=== PATIENT | female | born 1960 | race Caucasian/White ===

== ENCOUNTER 2017-08-12 13:02 | Inpatient (IN) | payer OTHER ==
[~2017-08-12] VITALS: Ht 162.6 cm; Wt 86.2 kg
[2017-08-12] MEDS ORDERED: fentaNYL PF VIAL 100 MCG/2 ML VIAL IV PRN (15:45)
[2017-08-12] MEDS ORDERED: oxyCODONE IR 5 MG TABLET PO PRN (15:45)
[2017-08-12] MEDS ORDERED: PIP/TAZO PER PHARMACY MC PRN (15:45)
--- NOTE | 2017-08-12 15:46 | PDOC1 ---
History and Physical Date of Admission Date of Admission DATE: 08/12/17 TIME: 15:44 Identification/Chief Complaint Chief Complaint abdomen pain Problems: Source Source: Caregiver, Chart review, Patient History of Present Illness History of Present Illness pt presented to the ER at [facility] with a few days of abdominal pain, mid abdomen pain, she thought it felt like a kidney problem at first. She was taking ibuprofen with some good benefit to her pain. Came to the ER as pain was not improving much. Mid abd pain, 02/04 CT scan abdomen showed renal stones, possible flash Abx given at OSH, white count up and she reported fever and chills at home since traveling to this hospital, her pain is much improved, less abd pain she drinks almost no alcohol, has no sick contacts, works nights, but is usually very healthy has had no change in stools Past Medical History Cardiovascular: No pertinent hx Pulmonary: No pertinent hx GI: No pertinent hx Heme/Onc: No pertinent hx Psych: No pertinent hx Rheumatologic: No pertinent hx Infectious disease: No pertinent hx ENT: No pertinent hx Renal/: No pertinent hx Endocrine: No pertinent hx Dermatology: No pertinent hx Past Surgical History Past Surgical History: No pertinent history Family History Family History: No Significant Social History Smoke: No ALCOHOL: rare Drugs: None Allergies Allergies: Coded Allergies: No Known Drug Allergies (Unverified , 08/12/17) ROS General: YES: Night Sweats, Fatigue, No: Chills, Malaise, Appetite, Other PSYCHOLOGICAL ROS: No: Concentration difficultie, Decreased libido, Depression , Disorientation, Hallucinations, Hostility, Irritablity, Memory difficulties, Mood Swings, Obsessive thoughts, Physical abuse, Sexual abuse, Sleep disturbances, Suicidal ideation, Other Eyes: No Blurry vision, No Decreased vision, No Double vision, No Dry eyes, No Excessive tearing, No Eye Pain, No Itchy Eyes, No Loss of vision, No Photophobia , No Scotomata, No Uses contacts, No Uses glasses, No Other HEENT: YES: Heacaches, No: Visual Changes, Hearing change, Nasal congestion, Nasal discharge, Oral lesions, Sinus pain, Sore Throat, Epistaxis, Sneezing, Snoring, Tinnitus, Vertigo, Vocal changes, Other Respiratory: No: Cough, Hemoptysis, Orthopnea, Pleuritic Pain, Shortness of breath, SOB with excertion, Sputum Changes, Stridor, Tachypnea, Wheezing, Other Cardiovascular: No Chest Pain, No Palpitations, No Orthopnea, No Paroxysmal Noc. Dyspnea, No Edema, No Lt Headedness, No Other Gastrointestinal: Yes Nausea, Yes Abdominal Pain, No Vomiting, No Diarrhea, No Constipation, No Melena, No Hematochezia, No Other Genitourinary: No Dysuria, No Frequency, No Incontinence, No Hematuria, No Retention, No Discharge, No Urgency, No Pain, No Flank Pain, No Other, No , No , No , No , No , No , No Musculoskeletal: No Gait Disturbance, No Joint Pain, No Joint Stiffness, No Joint Swelling, No Muscle Pain, No Muscular Weakness, No Pain In:, No Swelling In:, No Other Neurological: No Behavorial Changes, No Bowel/Bladder ControlChng, No Confusion , No Dizziness, No Gait Disturbance, No Headaches, No Impaired Coord/balance, No Memory Loss, No Numbness/Tingling, No Seizures, No Speech Problems, No Tremors, No Visual Changes, No Weakness, No Other Skin: No Dry Skin, No Eczema, No Hair Changes, No Lumps, No Mole Changes, No Mottling, No Nail Changes, No Pruritus, No Rash, No Skin Lesion Changes, No Other, No Acne Physical Exam General: Alert, Oriented X3, Cooperative, No acute distress HEENT: Atraumatic, PERRLA, Mucous membr. moist/pink Lungs: Clear to auscultation, Normal air movement Heart: S1S2, no gallops, no murmurs Abdomen: Normal bowel sounds, Soft Extremities: No clubbing, No cyanosis, No edema Skin: No rashes, No breakdown Neuro: Normal speech, Normal tone, Sensation intact, Cranial nerves 3-12 NL Psych/Mental Status: Mental status NL, Mood NL Labs Labs WBC 12.5, Hgb 15.3, plt 333 Na 143, K 3.8, Cl 106, C02 26, BUN 9, Cr 0.9, glucose 112 Lipase > 45065, AST 567, ALT [address] abd 08/12 Impression: 1. Mildly dilated gallbladder with cholelithiasis. Findings are equivocal for acute cholecystitis. 2. No nephrolithiasis or hydronephrosis. VTE Prophylaxis Ordered VTE Prophylaxis Devices: No VTE Pharmacological Prophylaxi: Yes Assessment/Plan Assessment/Plan acute pancreatitis possible gallstone pancreatitis, consult GI, may need MRCP has been NPO, try clears and IV fluid white count and fever, sepsis, unk. source, consider cholangitis as that is the only problem area, zosyn started, will continue consult gen surg. may benefit from cholecystectomy at some point admit PUJA PANTOJA MD Aug 12, 2017 15:46
[2017-08-12] MEDS ORDERED: SALIVA STIMULANT AGENT 44ML SPRAY BOTTLE. PO PRN (17:45)
[2017-08-12] MEDS ORDERED: ONDANSETRON PF 4 MG/2 ML VIAL. IV PRN (17:45)
[2017-08-12] MEDS: PIPERACILLIN/TAZO IV Push 3.375 GM VIAL. IVP SCH ×2 (18:07→23:44)
[2017-08-12] MEDS: IV NORMAL SALINE 1000ML BAG 1,000 ML IV SCH (18:07)
[2017-08-12 19:00] VITALS: BP 116/54
[2017-08-12] MEDS: ENOXAPARIN 40 MG/0.4 ML SYRINGE. SQ SCH (20:28)
[2017-08-12] MEDS: ACETAMINOPHEN 325 MG TABLET. PO PRN (20:28)
[2017-08-12 23:00] VITALS: BP 113/54
[2017-08-13 03:04] VITALS: BP 107/43
[2017-08-13] MEDS: IV NORMAL SALINE 1000ML BAG 1,000 ML IV SCH ×3 (03:35→23:56)
[2017-08-13 05:16] LABS: BASO # 0.1 x10^3/uL (0.0-0.2); BASO % 1 % (0-3); EOS % 6 % (0-3); HEMATOCRIT 39.4 % (36.0-47.0); HEMOGLOBIN 13.3 g/dL (12.0-15.5); LYMPH # 2.5 x10^3/uL (1.0-4.8); LYMPH % 35 % (24-48); MEAN CORPUSCULAR HEMOGLOBIN 32 pg (25-35); MEAN CORPUSCULAR HGB CONC 34 g/dL (31-37); MEAN CORPUSCULAR VOLUME 94 fL (79-100); MONO % 8 % (0-9); NEUT % 50 % (31-73); PLATELET COUNT 284 x10^3/uL (140-400); RED CELL DISTRIBUTION WIDTH 13.6 % (11.5-14.5)
[2017-08-13 05:53] LABS: ALBUMIN 3.2 g/dL (3.4-5.0); ALBUMIN/GLOBULIN RATIO 1.1 (1.0-1.7); CALCIUM 8.5 mg/dL (8.5-10.1); CREATININE 0.8 mg/dL (0.6-1.0); GFR 74.2; TOTAL BILIRUBIN 2.9 mg/dL (0.2-1.0)
[2017-08-13 05:55] LABS: CHOLESTEROL/HDL RATIO 1.7
[2017-08-13] MEDS: PIPERACILLIN/TAZO IV Push 3.375 GM VIAL. IVP SCH ×4 (05:58→23:56)
[2017-08-13 07:00] VITALS: BP 145/97
[2017-08-13] MEDS: ACETAMINOPHEN 325 MG TABLET. PO PRN (07:48)
--- NOTE | 2017-08-13 10:35 | PDOC ---
PROGRESS NOTES Chief Complaint Chief Complaint acute pancreatitis possible gallstone pancreatitis, consult GI, may need MRCP nausea and vomiting and diarrhea, enteritis, white count and fever, sepsis, treating cholangitis transaminitis History of Present Illness History of Present Illness lipase down markedly 15 k to 4k liver enzymes improving, Gen surg to see this AM, discussed briefly in room, cont abx, clear liquids Adat Vitals Vitals Vital Signs Date Time Temp Pulse Resp B/P (MAP) Pulse Ox O2 Delivery O2 Flow Rate FiO2 08/13/17 08:00 Room Air 08/13/17 07:00 98.2 56 20 145/97 (113) 96 98.2 Physical Exam General: Alert, Oriented X3, Cooperative, No acute distress Heart: Regular rate Abdomen: Normal bowel sounds, Soft Extremities: No clubbing, No cyanosis, No edema Skin: No rashes, No breakdown Labs LABS Laboratory Tests Test 08/13/17 04:55 White Blood Count 7.0 x10^3/uL (4.0-11.0) Red Blood Count 4.20 x10^6/uL (3.50-5.40) Hemoglobin 13.3 g/dL (12.0-15.5) Hematocrit 39.4 % (36.0-47.0) Mean Corpuscular Volume 94 fL (79-100) Mean Corpuscular Hemoglobin 32 pg (25-35) Mean Corpuscular Hemoglobin Concent 34 g/dL (31-37) Red Cell Distribution Width 13.6 % (11.5-14.5) Platelet Count 284 x10^3/uL (140-400) Neutrophils (%) (Auto) 50 % (31-73) Lymphocytes (%) (Auto) 35 % (24-48) Monocytes (%) (Auto) 8 % (0-9) Eosinophils (%) (Auto) 6 % (0-3) Basophils (%) (Auto) 1 % (0-3) Neutrophils # (Auto) 3.5 x10^3uL (1.8-7.7) Lymphocytes # (Auto) 2.5 x10^3/uL (1.0-4.8) Monocytes # (Auto) 0.6 x10^3/uL (0.0-1.1) Eosinophils # (Auto) 0.4 x10^3/uL (0.0-0.7) Basophils # (Auto) 0.1 x10^3/uL (0.0-0.2) Sodium Level 143 mmol/L (136-145) Potassium Level 4.0 mmol/L (3.5-5.1) Chloride Level 109 mmol/L (98-107) Carbon Dioxide Level 24 mmol/L (21-32) Anion Gap 10 (6-14) Blood Urea Nitrogen 12 mg/dL (7-20) Creatinine 0.8 mg/dL (0.6-1.0) Estimated GFR (Cockcroft-Gault) 74.2 BUN/Creatinine Ratio 15 (6-20) Glucose Level 99 mg/dL (70-99) Calcium Level 8.5 mg/dL (8.5-10.1) Total Bilirubin 2.9 mg/dL (0.2-1.0) Gamma Glutamyl Transpeptidase 718 U/L (5-55) Aspartate Amino Transf (AST/SGOT) 320 U/L (15-37) Alanine Aminotransferase (ALT/SGPT) 581 U/L (14-59) Alkaline Phosphatase 265 U/L (46-116) Total Protein 6.0 g/dL (6.4-8.2) Albumin 3.2 g/dL (3.4-5.0) Albumin/Globulin Ratio 1.1 (1.0-1.7) Triglycerides Level 36 mg/dL (0-150) Cholesterol Level 180 mg/dL (0-200) LDL Cholesterol, Calculated 68 mg/dL (0-100) VLDL Cholesterol, Calculated 7 mg/dL (0-40) Non-HDL Cholesterol Calculated 75 mg/dL (0-129) HDL Cholesterol 105 mg/dL (40-60) Cholesterol/HDL Ratio 1.7 Lipase 3948 U/L (73-393) Review of Systems Review of Systems nausea and vomiting and diarrhea abd pain better Comment Review of Relevant I have reviewed the following items los (where applicable) has been applied. Labs Laboratory Tests Test 08/13/17 04:55 White Blood Count 7.0 x10^3/uL (4.0-11.0) Red Blood Count 4.20 x10^6/uL (3.50-5.40) Hemoglobin 13.3 g/dL (12.0-15.5) Hematocrit 39.4 % (36.0-47.0) Mean Corpuscular Volume 94 fL (79-100) Mean Corpuscular Hemoglobin 32 pg (25-35) Mean Corpuscular Hemoglobin Concent 34 g/dL (31-37) Red Cell Distribution Width 13.6 % (11.5-14.5) Platelet Count 284 x10^3/uL (140-400) Neutrophils (%) (Auto) 50 % (31-73) Lymphocytes (%) (Auto) 35 % (24-48) Monocytes (%) (Auto) 8 % (0-9) Eosinophils (%) (Auto) 6 % (0-3) Basophils (%) (Auto) 1 % (0-3) Neutrophils # (Auto) 3.5 x10^3uL (1.8-7.7) Lymphocytes # (Auto) 2.5 x10^3/uL (1.0-4.8) Monocytes # (Auto) 0.6 x10^3/uL (0.0-1.1) Eosinophils # (Auto) 0.4 x10^3/uL (0.0-0.7) Basophils # (Auto) 0.1 x10^3/uL (0.0-0.2) Sodium Level 143 mmol/L (136-145) Potassium Level 4.0 mmol/L (3.5-5.1) Chloride Level 109 mmol/L (98-107) Carbon Dioxide Level 24 mmol/L (21-32) Anion Gap 10 (6-14) Blood Urea Nitrogen 12 mg/dL (7-20) Creatinine 0.8 mg/dL (0.6-1.0) Estimated GFR (Cockcroft-Gault) 74.2 BUN/Creatinine Ratio 15 (6-20) Glucose Level 99 mg/dL (70-99) Calcium Level 8.5 mg/dL (8.5-10.1) Total Bilirubin 2.9 mg/dL (0.2-1.0) Gamma Glutamyl Transpeptidase 718 U/L (5-55) Aspartate Amino Transf (AST/SGOT) 320 U/L (15-37) Alanine Aminotransferase (ALT/SGPT) 581 U/L (14-59) Alkaline Phosphatase 265 U/L (46-116) Total Protein 6.0 g/dL (6.4-8.2) Albumin 3.2 g/dL (3.4-5.0) Albumin/Globulin Ratio 1.1 (1.0-1.7) Triglycerides Level 36 mg/dL (0-150) Cholesterol Level 180 mg/dL (0-200) LDL Cholesterol, Calculated 68 mg/dL (0-100) VLDL Cholesterol, Calculated 7 mg/dL (0-40) Non-HDL Cholesterol Calculated 75 mg/dL (0-129) HDL Cholesterol 105 mg/dL (40-60) Cholesterol/HDL Ratio 1.7 Lipase 3948 U/L (73-393) Laboratory Tests Test 08/13/17 04:55 White Blood Count 7.0 x10^3/uL (4.0-11.0) Red Blood Count 4.20 x10^6/uL (3.50-5.40) Hemoglobin 13.3 g/dL (12.0-15.5) Hematocrit 39.4 % (36.0-47.0) Mean Corpuscular Volume 94 fL (79-100) Mean Corpuscular Hemoglobin 32 pg (25-35) Mean Corpuscular Hemoglobin Concent 34 g/dL (31-37) Red Cell Distribution Width 13.6 % (11.5-14.5) Platelet Count 284 x10^3/uL (140-400) Neutrophils (%) (Auto) 50 % (31-73) Lymphocytes (%) (Auto) 35 % (24-48) Monocytes (%) (Auto) 8 % (0-9) Eosinophils (%) (Auto) 6 % (0-3) Basophils (%) (Auto) 1 % (0-3) Neutrophils # (Auto) 3.5 x10^3uL (1.8-7.7) Lymphocytes # (Auto) 2.5 x10^3/uL (1.0-4.8) Monocytes # (Auto) 0.6 x10^3/uL (0.0-1.1) Eosinophils # (Auto) 0.4 x10^3/uL (0.0-0.7) Basophils # (Auto) 0.1 x10^3/uL (0.0-0.2) Sodium Level 143 mmol/L (136-145) Potassium Level 4.0 mmol/L (3.5-5.1) Chloride Level 109 mmol/L (98-107) Carbon Dioxide Level 24 mmol/L (21-32) Anion Gap 10 (6-14) Blood Urea Nitrogen 12 mg/dL (7-20) Creatinine 0.8 mg/dL (0.6-1.0) Estimated GFR (Cockcroft-Gault) 74.2 BUN/Creatinine Ratio 15 (6-20) Glucose Level 99 mg/dL (70-99) Calcium Level 8.5 mg/dL (8.5-10.1) Total Bilirubin 2.9 mg/dL (0.2-1.0) Gamma Glutamyl Transpeptidase 718 U/L (5-55) Aspartate Amino Transf (AST/SGOT) 320 U/L (15-37) Alanine Aminotransferase (ALT/SGPT) 581 U/L (14-59) Alkaline Phosphatase 265 U/L (46-116) Total Protein 6.0 g/dL (6.4-8.2) Albumin 3.2 g/dL (3.4-5.0) Albumin/Globulin Ratio 1.1 (1.0-1.7) Triglycerides Level 36 mg/dL (0-150) Cholesterol Level 180 mg/dL (0-200) LDL Cholesterol, Calculated 68 mg/dL (0-100) VLDL Cholesterol, Calculated 7 mg/dL (0-40) Non-HDL Cholesterol Calculated 75 mg/dL (0-129) HDL Cholesterol 105 mg/dL (40-60) Cholesterol/HDL Ratio 1.7 Lipase 3948 U/L (73-393) Medications Current Medications Enoxaparin Sodium (Lovenox Per Pharmacy Prophylaxis Dosing) 1 each PRN DAILY PRN MC SEE COMMENTS; Start 08/12/17 at 15:45 Oxycodone HCl (Roxicodone) 5 mg PRN Q6HRS PRN PO PAIN SEVERE; Start 08/12/17 at 15:45 Fentanyl Citrate (Fentanyl 2ml Vial) 50 mcg PRN Q2HR PRN IV PAIN SEVERE; Start 08/12/17 at 15:45 Piperacillin Sod/ Tazobactam Sod (Zosyn Per Pharmacy) 1 each PRN DAILY PRN MC SEE COMMENTS; Start 08/12/17 at 15:45 Enoxaparin Sodium (Lovenox 40mg Syringe) 40 mg Q24H SQ ; Start 08/12/17 at 21: 00 Piperacillin Sod/ Tazobactam Sod (Zosyn) 3.375 gm Q6HRS IVP Last administered on 08/13/17 05:58; Start 08/12/17 at 18:00 Sodium Chloride 1,000 ml @ 100 mls/hr Q10H IV Last administered on 08/13/17 03:35; Start 08/12/17 at 17:15 Saliva Substitute (Biotene Moisturizing Mouth) 2 spray PRN Q15MIN PRN PO DRY MOUTH; Start 08/12/17 at 17:45 Ondansetron HCl (Zofran) 4 mg PRN Q8HRS PRN IV NAUSEA/VOMITING 1ST CHOICE; Start 08/12/17 at 17:45 Acetaminophen (Tylenol) 650 mg PRN Q6HRS PRN PO HEADACHE Last administered on 08/13/17 07:48; Start 08/12/17 at 19:45 Vitals/I & O Vital Sign - Last 24 Hours 08/12/17 08/12/17 08/12/17 08/12/17 15:42 19:00 19:42 23:00 Temp 98.2 99.7 98.2 99.7 Pulse 70 68 Resp 18 18 B/P (MAP) 116/54 (74) 113/54 (73) Pulse Ox 94 95 O2 Delivery Room Air Room Air Room Air Room Air 08/13/17 08/13/17 08/13/17 03:04 07:00 08:00 Temp 98.1 98.2 98.1 98.2 Pulse 61 56 Resp 20 20 B/P (MAP) 107/43 (64) 145/97 (113) Pulse Ox 96 96 O2 Delivery Room Air Room Air Room Air Intake and Output 08/12/17 08/12/17 08/13/17 15:00 23:00 07:00 Intake Total 120 ml 240 ml Balance 120 ml 240 ml PUJA PANTOJA MD Aug 13, 2017 10:35
[2017-08-13 10:42] VITALS: BP 138/57
--- NOTE | 2017-08-13 13:47 | PDOC ---
GI PROGRESS NOTES Date Date/Time DATE: 08/13/17 TIME: 13:41 Subjective Subjective Sudden onset periumbilical pain and n/v- history of dyspepsia and HB in past but no pain like this- abn lfts and liapse at [facility] and Ct with gallstones but no CBD dilation- transferred here Objective Vitals Vital Signs Date Time Temp Pulse Resp B/P (MAP) Pulse Ox O2 Delivery O2 Flow Rate FiO2 08/13/17 10:42 98.1 55 20 138/57 (84) 95 Room Air 98.1 08/13/17 08:00 Room Air 08/13/17 07:00 98.2 56 20 145/97 (113) 96 Room Air 98.2 08/13/17 03:04 98.1 61 20 107/43 (64) 96 Room Air 98.1 08/12/17 23:00 99.7 68 18 113/54 (73) 95 Room Air 99.7 08/12/17 19:42 Room Air 08/12/17 19:00 98.2 70 18 116/54 (74) 94 Room Air 98.2 08/12/17 15:42 Room Air Labs Labs Laboratory Tests Test 08/13/17 04:55 White Blood Count 7.0 x10^3/uL (4.0-11.0) Red Blood Count 4.20 x10^6/uL (3.50-5.40) Hemoglobin 13.3 g/dL (12.0-15.5) Hematocrit 39.4 % (36.0-47.0) Mean Corpuscular Volume 94 fL (79-100) Mean Corpuscular Hemoglobin 32 pg (25-35) Mean Corpuscular Hemoglobin Concent 34 g/dL (31-37) Red Cell Distribution Width 13.6 % (11.5-14.5) Platelet Count 284 x10^3/uL (140-400) Neutrophils (%) (Auto) 50 % (31-73) Lymphocytes (%) (Auto) 35 % (24-48) Monocytes (%) (Auto) 8 % (0-9) Eosinophils (%) (Auto) 6 % (0-3) Basophils (%) (Auto) 1 % (0-3) Neutrophils # (Auto) 3.5 x10^3uL (1.8-7.7) Lymphocytes # (Auto) 2.5 x10^3/uL (1.0-4.8) Monocytes # (Auto) 0.6 x10^3/uL (0.0-1.1) Eosinophils # (Auto) 0.4 x10^3/uL (0.0-0.7) Basophils # (Auto) 0.1 x10^3/uL (0.0-0.2) Sodium Level 143 mmol/L (136-145) Potassium Level 4.0 mmol/L (3.5-5.1) Chloride Level 109 mmol/L (98-107) Carbon Dioxide Level 24 mmol/L (21-32) Anion Gap 10 (6-14) Blood Urea Nitrogen 12 mg/dL (7-20) Creatinine 0.8 mg/dL (0.6-1.0) Estimated GFR (Cockcroft-Gault) 74.2 BUN/Creatinine Ratio 15 (6-20) Glucose Level 99 mg/dL (70-99) Calcium Level 8.5 mg/dL (8.5-10.1) Total Bilirubin 2.9 mg/dL (0.2-1.0) Gamma Glutamyl Transpeptidase 718 U/L (5-55) Aspartate Amino Transf (AST/SGOT) 320 U/L (15-37) Alanine Aminotransferase (ALT/SGPT) 581 U/L (14-59) Alkaline Phosphatase 265 U/L (46-116) Total Protein 6.0 g/dL (6.4-8.2) Albumin 3.2 g/dL (3.4-5.0) Albumin/Globulin Ratio 1.1 (1.0-1.7) Triglycerides Level 36 mg/dL (0-150) Cholesterol Level 180 mg/dL (0-200) LDL Cholesterol, Calculated 68 mg/dL (0-100) VLDL Cholesterol, Calculated 7 mg/dL (0-40) Non-HDL Cholesterol Calculated 75 mg/dL (0-129) HDL Cholesterol 105 mg/dL (40-60) Cholesterol/HDL Ratio 1.7 Lipase 3948 U/L (73-393) Assessment Assessment Acute pain with elevated lipase and lfts yesterday- suggestive of passing CBD stone- clinically improved- pain resolved and labs still abn but improving Was considering MRCP BUT I understand surgery has seen her and planning L/C tomorrow- with IOC- so will hold on MRCP at this time and await results of surgery. Had negative screening colonoscopy a few years ago Empiric PPI as well Consult dictated Problems: BRY GUILLORY MD Aug 13, 2017 13:47
[2017-08-13 14:45] VITALS: BP 120/47
[2017-08-13] MEDS: PANTOPRAZOLE IV PUSH 40 MG VIAL. IVP SCH (15:39)
--- NOTE | 2017-08-13 16:02 | PDOC2 ---
CONSULT Date of Consult Date of Consult DATE: 08/13/17 TIME: 15:58 Reason for Consult Reason for Consult: Gallstone pancreatitis Referring Physician Referring Physician: Sergio Identification/Chief Complaint Chief Complaint Epigastric abd pain Problems: Source Source: Patient History of Present Illness Reason for Visit: 56 yo F with epigastric abd pain, acute onset. Identified to have evidence of gallstone pancreatitis and transferred here. Feels better today. Past Medical History Cardiovascular: No pertinent hx Pulmonary: No pertinent hx GI: No pertinent hx Heme/Onc: No pertinent hx Psych: No pertinent hx Rheumatologic: No pertinent hx Infectious disease: No pertinent hx ENT: No pertinent hx Renal/: No pertinent hx Endocrine: No pertinent hx Dermatology: No pertinent hx Past Surgical History Past Surgical History: No pertinent history Family History Family History: No Significant Social History No ALCOHOL: rare Drugs: None Current Medications Current Medications Current Medications Enoxaparin Sodium (Lovenox Per Pharmacy Prophylaxis Dosing) 1 each PRN DAILY PRN MC SEE COMMENTS; Start 08/12/17 at 15:45 Oxycodone HCl (Roxicodone) 5 mg PRN Q6HRS PRN PO PAIN SEVERE; Start 08/12/17 at 15:45 Fentanyl Citrate (Fentanyl 2ml Vial) 50 mcg PRN Q2HR PRN IV PAIN SEVERE; Start 08/12/17 at 15:45 Piperacillin Sod/ Tazobactam Sod (Zosyn Per Pharmacy) 1 each PRN DAILY PRN MC SEE COMMENTS; Start 08/12/17 at 15:45 Enoxaparin Sodium (Lovenox 40mg Syringe) 40 mg Q24H SQ ; Start 08/12/17 at 21: 00 Piperacillin Sod/ Tazobactam Sod (Zosyn) 3.375 gm Q6HRS IVP Last administered on 08/13/17t 12:31; Start 08/12/17 at 18:00 Sodium Chloride 1,000 ml @ 100 mls/hr Q10H IV Last administered on 08/13/17t 14:30; Start 08/12/17 at 17:15 Saliva Substitute (Biotene Moisturizing Mouth) 2 spray PRN Q15MIN PRN PO DRY MOUTH; Start 08/12/17 at 17:45 Ondansetron HCl (Zofran) 4 mg PRN Q8HRS PRN IV NAUSEA/VOMITING 1ST CHOICE; Start 08/12/17 at 17:45 Acetaminophen (Tylenol) 650 mg PRN Q6HRS PRN PO HEADACHE Last administered on 08/13/17 07:48; Start 08/12/17 at 19:45 Pantoprazole Sodium (PROTONIX VIAL for IV PUSH) 40 mg DAILYAC IVP Last administered on 08/13/17 15:39; Start 08/13/17 at 14:00 Allergies Allergies: Coded Allergies: No Known Drug Allergies (Unverified , 08/12/17) ROS Gastrointestinal: Yes Abdominal Pain Physical Exam General: Alert, Oriented X3, Cooperative, No acute distress HEENT: Atraumatic, EOMI Lungs: Normal air movement Abdomen: Soft, Other (min epigastric TTP) Extremities: No clubbing, No cyanosis Skin: No rashes, No breakdown Neuro: Normal speech, Sensation intact Psych/Mental Status: Mental status NL, Mood NL Vitals VITALS Vital Signs Date Time Temp Pulse Resp B/P (MAP) Pulse Ox O2 Delivery O2 Flow Rate FiO2 08/13/17 14:45 98.2 55 18 120/47 (71) 93 Room Air 98.2 Labs Labs Laboratory Tests Test 08/13/17 04:55 White Blood Count 7.0 x10^3/uL (4.0-11.0) Red Blood Count 4.20 x10^6/uL (3.50-5.40) Hemoglobin 13.3 g/dL (12.0-15.5) Hematocrit 39.4 % (36.0-47.0) Mean Corpuscular Volume 94 fL (79-100) Mean Corpuscular Hemoglobin 32 pg (25-35) Mean Corpuscular Hemoglobin Concent 34 g/dL (31-37) Red Cell Distribution Width 13.6 % (11.5-14.5) Platelet Count 284 x10^3/uL (140-400) Neutrophils (%) (Auto) 50 % (31-73) Lymphocytes (%) (Auto) 35 % (24-48) Monocytes (%) (Auto) 8 % (0-9) Eosinophils (%) (Auto) 6 % (0-3) Basophils (%) (Auto) 1 % (0-3) Neutrophils # (Auto) 3.5 x10^3uL (1.8-7.7) Lymphocytes # (Auto) 2.5 x10^3/uL (1.0-4.8) Monocytes # (Auto) 0.6 x10^3/uL (0.0-1.1) Eosinophils # (Auto) 0.4 x10^3/uL (0.0-0.7) Basophils # (Auto) 0.1 x10^3/uL (0.0-0.2) Sodium Level 143 mmol/L (136-145) Potassium Level 4.0 mmol/L (3.5-5.1) Chloride Level 109 mmol/L (98-107) Carbon Dioxide Level 24 mmol/L (21-32) Anion Gap 10 (6-14) Blood Urea Nitrogen 12 mg/dL (7-20) Creatinine 0.8 mg/dL (0.6-1.0) Estimated GFR (Cockcroft-Gault) 74.2 BUN/Creatinine Ratio 15 (6-20) Glucose Level 99 mg/dL (70-99) Calcium Level 8.5 mg/dL (8.5-10.1) Total Bilirubin 2.9 mg/dL (0.2-1.0) Gamma Glutamyl Transpeptidase 718 U/L (5-55) Aspartate Amino Transf (AST/SGOT) 320 U/L (15-37) Alanine Aminotransferase (ALT/SGPT) 581 U/L (14-59) Alkaline Phosphatase 265 U/L (46-116) Total Protein 6.0 g/dL (6.4-8.2) Albumin 3.2 g/dL (3.4-5.0) Albumin/Globulin Ratio 1.1 (1.0-1.7) Triglycerides Level 36 mg/dL (0-150) Cholesterol Level 180 mg/dL (0-200) LDL Cholesterol, Calculated 68 mg/dL (0-100) VLDL Cholesterol, Calculated 7 mg/dL (0-40) Non-HDL Cholesterol Calculated 75 mg/dL (0-129) HDL Cholesterol 105 mg/dL (40-60) Cholesterol/HDL Ratio 1.7 Lipase 3948 U/L (73-393) Laboratory Tests Test 08/13/17 04:55 White Blood Count 7.0 x10^3/uL (4.0-11.0) Red Blood Count 4.20 x10^6/uL (3.50-5.40) Hemoglobin 13.3 g/dL (12.0-15.5) Hematocrit 39.4 % (36.0-47.0) Mean Corpuscular Volume 94 fL (79-100) Mean Corpuscular Hemoglobin 32 pg (25-35) Mean Corpuscular Hemoglobin Concent 34 g/dL (31-37) Red Cell Distribution Width 13.6 % (11.5-14.5) Platelet Count 284 x10^3/uL (140-400) Neutrophils (%) (Auto) 50 % (31-73) Lymphocytes (%) (Auto) 35 % (24-48) Monocytes (%) (Auto) 8 % (0-9) Eosinophils (%) (Auto) 6 % (0-3) Basophils (%) (Auto) 1 % (0-3) Neutrophils # (Auto) 3.5 x10^3uL (1.8-7.7) Lymphocytes # (Auto) 2.5 x10^3/uL (1.0-4.8) Monocytes # (Auto) 0.6 x10^3/uL (0.0-1.1) Eosinophils # (Auto) 0.4 x10^3/uL (0.0-0.7) Basophils # (Auto) 0.1 x10^3/uL (0.0-0.2) Sodium Level 143 mmol/L (136-145) Potassium Level 4.0 mmol/L (3.5-5.1) Chloride Level 109 mmol/L (98-107) Carbon Dioxide Level 24 mmol/L (21-32) Anion Gap 10 (6-14) Blood Urea Nitrogen 12 mg/dL (7-20) Creatinine 0.8 mg/dL (0.6-1.0) Estimated GFR (Cockcroft-Gault) 74.2 BUN/Creatinine Ratio 15 (6-20) Glucose Level 99 mg/dL (70-99) Calcium Level 8.5 mg/dL (8.5-10.1) Total Bilirubin 2.9 mg/dL (0.2-1.0) Gamma Glutamyl Transpeptidase 718 U/L (5-55) Aspartate Amino Transf (AST/SGOT) 320 U/L (15-37) Alanine Aminotransferase (ALT/SGPT) 581 U/L (14-59) Alkaline Phosphatase 265 U/L (46-116) Total Protein 6.0 g/dL (6.4-8.2) Albumin 3.2 g/dL (3.4-5.0) Albumin/Globulin Ratio 1.1 (1.0-1.7) Triglycerides Level 36 mg/dL (0-150) Cholesterol Level 180 mg/dL (0-200) LDL Cholesterol, Calculated 68 mg/dL (0-100) VLDL Cholesterol, Calculated 7 mg/dL (0-40) Non-HDL Cholesterol Calculated 75 mg/dL (0-129) HDL Cholesterol 105 mg/dL (40-60) Cholesterol/HDL Ratio 1.7 Lipase 3948 U/L (73-393) Images Images Ct c/w gallstones Assessment/Plan Assessment/Plan Gallstone pancreatitis will plan laparoscopic cholecystectomy with cholangiogram tomorrow, if continued improvement by labs and clinically. R/B/A d/w pt and pt's family. Risks, including, but not limited to: bleeding, infection, damage to surrounding structures, risk of anesthesia, risk of open. They appear to understand, their questions are answered and they agree to proceed. Thanks for consult! MARLIN MIRANDA MD Aug 13, 2017 16:02
[2017-08-13 19:00] VITALS: BP 122/49
[2017-08-13] MEDS: ENOXAPARIN 40 MG/0.4 ML SYRINGE. SQ SCH (20:05)
--- NOTE | 2017-08-13 22:35 | CONS ---
DATE OF CONSULTATION: 08/13/2017 GI CONSULTATION CHIEF COMPLAINT: Periumbilical abdominal pain, abnormal liver function studies and elevated lipase. HISTORY OF PRESENT ILLNESS: This is a 56-year-old white female who is unaware that she had gallstones, but has had dyspepsia in the past. She describes some indigestion and belching after certain foods and some heartburn symptoms, but no severe pain. She had the sudden onset of pain yesterday, periumbilical pain, severe in nature, associated with nausea and some vomiting. Because of these symptoms, she went to urgent care where she was told this was not a urinary infection, which is what she thought, but in fact might be something more serious and she was sent to [facility] where a CT scan revealed gallstones without acute cholecystitis, and no evidence of dilated common bile duct, but elevation in liver function studies and lipase of 15,000 suggest that she either passed a common bile duct stone or still had one in place. She was transferred here for further evaluation last night. She denied any fever or chills. She has had no hematemesis. She describes intermittent constipation, but is pretty much her regular bowel pattern. She had a colonoscopy several years ago as a screening study and was reportedly negative. PAST MEDICAL HISTORY: None is reported. PAST SURGICAL HISTORY: None is reported, but did have a screening colonoscopy several years ago. SOCIAL HISTORY: Does not smoke, does not drink, does not use illicit drugs. FAMILY HISTORY: Negative for GI related disorders. REVIEW OF SYSTEMS: CONSTITUTIONAL: Other than the pain, denies fevers. No headache. RESPIRATORY: No shortness of breath. No chest pain or pedal edema. GENITOURINARY: No changes. NEUROLOGIC: Denies seizures or paralysis. MUSCULOSKELETAL: Denies acute arthritis, arthralgias. PHYSICAL EXAMINATION: GENERAL: She is awake and alert. She is in no distress. VITAL SIGNS: Temperature is max of 99.7, blood pressure 113/54, pulse 68, respirations are 18. HEENT: She is anicteric. CHEST: Clear. HEART: Regular rate and rhythm. ABDOMEN: Bowel sounds are present, soft, nontender, no organomegaly or masses. RECTAL: Deferred. EXTREMITIES: No cyanosis, clubbing or edema. NEUROLOGIC: Alert and oriented. No gross deficits. LABORATORY DATA: At [facility], her lipase was over 15,000 and now 1 day later is 3900. Her bilirubin was 4.2 yesterday, is now 2.9, so all the labs appear to be improving. CT scan revealed gallstones without obstruction or acute cholecystitis features. IMPRESSION: 1. Cholelithiasis based on imaging studies. 2. Abnormal liver studies, liver tests and lipase with abdominal pain that has improved. This is very consistent clinically with passage of a common bile duct stone and clinically it appears that she has in fact passed the stone. Her labs are improving. Her pain is resolved. She has planned surgical consultation and laparoscopic cholecystectomy tomorrow. Some sort of imaging of the common bile duct is recommended, but since she is having surgery tomorrow with intraoperative cholangiogram, we will hold on magnetic resonance cholangiopancreatography at this point, but that certainly would be another option if surgery was not forthcoming. We appreciate the opportunity. Based on her chronic dyspepsia and heartburn symptoms, although these are probably related to her gallstones, the possibility of underlying reflux should be considered and would empirically start her on a proton pump inhibitor as well and may consider an upper endoscopy in the future. BRY GUILLORY MD DR: ESMER/segundo JOB#: [id number] / [id number]
[2017-08-13 23:00] VITALS: BP 115/50
[2017-08-14] VITALS (12 sets, daily range): BP systolic 113–147; BP diastolic 43–89
[2017-08-14 04:16] LABS: BASO # 0.1 x10^3/uL (0.0-0.2); BASO % 1 % (0-3); EOS % 6 % (0-3); HEMATOCRIT 38.4 % (36.0-47.0); LYMPH # 2.7 x10^3/uL (1.0-4.8); LYMPH % 41 % (24-48); MEAN CORPUSCULAR HEMOGLOBIN 31 pg (25-35); MEAN CORPUSCULAR HGB CONC 34 g/dL (31-37); MEAN CORPUSCULAR VOLUME 93 fL (79-100); MONO % 8 % (0-9); NEUT % 44 % (31-73); PLATELET COUNT 284 x10^3/uL (140-400); RED BLOOD COUNT 4.13 x10^6/uL (3.50-5.40); RED CELL DISTRIBUTION WIDTH 13.5 % (11.5-14.5); WHITE BLOOD COUNT 6.6 x10^3/uL (4.0-11.0)
[2017-08-14 04:42] LABS: ALBUMIN 2.9 g/dL (3.4-5.0); ALBUMIN/GLOBULIN RATIO 0.9 (1.0-1.7); CALCIUM 8.5 mg/dL (8.5-10.1); CREATININE 0.8 mg/dL (0.6-1.0); GFR 74.2; POTASSIUM 3.6 mmol/L (3.5-5.1); TOTAL BILIRUBIN 1.2 mg/dL (0.2-1.0)
[2017-08-14] MEDS: PIPERACILLIN/TAZO IV Push 3.375 GM VIAL. IVP SCH ×4 (06:05→23:53)
--- NOTE | 2017-08-14 09:47 | PDOC ---
RAYNA BROWN WET PRESS TENDER 08/14/17 0947: SURGICAL PROGRESS NOTE Subjective no pain questions answered Vital Signs Vital Signs Date Time Temp Pulse Resp B/P (MAP) Pulse Ox O2 Delivery O2 Flow Rate FiO2 08/14/17 07:10 97.7 57 18 130/49 (76) 96 Room Air 97.7 I&O Intake and Output 08/14/17 06:59 Intake Total 320 ml Output Total 3 ml Balance 317 ml Intake Oral 320 ml Output Stool Total 3 ml # Voids 6 General: Alert, Oriented X3, Cooperative, No acute distress Abdomen: Soft, No tenderness Labs Laboratory Tests Test 08/13/17 04:55 08/14/17 04:00 White Blood Count 7.0 x10^3/uL (4.0-11.0) 6.6 x10^3/uL (4.0-11.0) Red Blood Count 4.20 x10^6/uL (3.50-5.40) 4.13 x10^6/uL (3.50-5.40) Hemoglobin 13.3 g/dL (12.0-15.5) 13.0 g/dL (12.0-15.5) Hematocrit 39.4 % (36.0-47.0) 38.4 % (36.0-47.0) Mean Corpuscular Volume 94 fL (79-100) 93 fL (79-100) Mean Corpuscular Hemoglobin 32 pg (25-35) 31 pg (25-35) Mean Corpuscular Hemoglobin Concent 34 g/dL (31-37) 34 g/dL (31-37) Red Cell Distribution Width 13.6 % (11.5-14.5) 13.5 % (11.5-14.5) Platelet Count 284 x10^3/uL (140-400) 284 x10^3/uL (140-400) Neutrophils (%) (Auto) 50 % (31-73) 44 % (31-73) Lymphocytes (%) (Auto) 35 % (24-48) 41 % (24-48) Monocytes (%) (Auto) 8 % (0-9) 8 % (0-9) Eosinophils (%) (Auto) 6 % (0-3) 6 % (0-3) Basophils (%) (Auto) 1 % (0-3) 1 % (0-3) Neutrophils # (Auto) 3.5 x10^3uL (1.8-7.7) 2.9 x10^3uL (1.8-7.7) Lymphocytes # (Auto) 2.5 x10^3/uL (1.0-4.8) 2.7 x10^3/uL (1.0-4.8) Monocytes # (Auto) 0.6 x10^3/uL (0.0-1.1) 0.5 x10^3/uL (0.0-1.1) Eosinophils # (Auto) 0.4 x10^3/uL (0.0-0.7) 0.4 x10^3/uL (0.0-0.7) Basophils # (Auto) 0.1 x10^3/uL (0.0-0.2) 0.1 x10^3/uL (0.0-0.2) Sodium Level 143 mmol/L (136-145) 143 mmol/L (136-145) Potassium Level 4.0 mmol/L (3.5-5.1) 3.6 mmol/L (3.5-5.1) Chloride Level 109 mmol/L (98-107) 110 mmol/L (98-107) Carbon Dioxide Level 24 mmol/L (21-32) 24 mmol/L (21-32) Anion Gap 10 (6-14) 9 (6-14) Blood Urea Nitrogen 12 mg/dL (7-20) 9 mg/dL (7-20) Creatinine 0.8 mg/dL (0.6-1.0) 0.8 mg/dL (0.6-1.0) Estimated GFR (Cockcroft-Gault) 74.2 74.2 BUN/Creatinine Ratio 15 (6-20) 11 (6-20) Glucose Level 99 mg/dL (70-99) 102 mg/dL (70-99) Calcium Level 8.5 mg/dL (8.5-10.1) 8.5 mg/dL (8.5-10.1) Total Bilirubin 2.9 mg/dL (0.2-1.0) 1.2 mg/dL (0.2-1.0) Gamma Glutamyl Transpeptidase 718 U/L (5-55) Aspartate Amino Transf (AST/SGOT) 320 U/L (15-37) 116 U/L (15-37) Alanine Aminotransferase (ALT/SGPT) 581 U/L (14-59) 378 U/L (14-59) Alkaline Phosphatase 265 U/L (46-116) 215 U/L (46-116) Total Protein 6.0 g/dL (6.4-8.2) 6.0 g/dL (6.4-8.2) Albumin 3.2 g/dL (3.4-5.0) 2.9 g/dL (3.4-5.0) Albumin/Globulin Ratio 1.1 (1.0-1.7) 0.9 (1.0-1.7) Triglycerides Level 36 mg/dL (0-150) Cholesterol Level 180 mg/dL (0-200) LDL Cholesterol, Calculated 68 mg/dL (0-100) VLDL Cholesterol, Calculated 7 mg/dL (0-40) Non-HDL Cholesterol Calculated 75 mg/dL (0-129) HDL Cholesterol 105 mg/dL (40-60) Cholesterol/HDL Ratio 1.7 Lipase 3948 U/L (73-393) 380 U/L (73-393) Laboratory Tests Test 08/14/17 04:00 White Blood Count 6.6 x10^3/uL (4.0-11.0) Red Blood Count 4.13 x10^6/uL (3.50-5.40) Hemoglobin 13.0 g/dL (12.0-15.5) Hematocrit 38.4 % (36.0-47.0) Mean Corpuscular Volume 93 fL (79-100) Mean Corpuscular Hemoglobin 31 pg (25-35) Mean Corpuscular Hemoglobin Concent 34 g/dL (31-37) Red Cell Distribution Width 13.5 % (11.5-14.5) Platelet Count 284 x10^3/uL (140-400) Neutrophils (%) (Auto) 44 % (31-73) Lymphocytes (%) (Auto) 41 % (24-48) Monocytes (%) (Auto) 8 % (0-9) Eosinophils (%) (Auto) 6 % (0-3) Basophils (%) (Auto) 1 % (0-3) Neutrophils # (Auto) 2.9 x10^3uL (1.8-7.7) Lymphocytes # (Auto) 2.7 x10^3/uL (1.0-4.8) Monocytes # (Auto) 0.5 x10^3/uL (0.0-1.1) Eosinophils # (Auto) 0.4 x10^3/uL (0.0-0.7) Basophils # (Auto) 0.1 x10^3/uL (0.0-0.2) Sodium Level 143 mmol/L (136-145) Potassium Level 3.6 mmol/L (3.5-5.1) Chloride Level 110 mmol/L (98-107) Carbon Dioxide Level 24 mmol/L (21-32) Anion Gap 9 (6-14) Blood Urea Nitrogen 9 mg/dL (7-20) Creatinine 0.8 mg/dL (0.6-1.0) Estimated GFR (Cockcroft-Gault) 74.2 BUN/Creatinine Ratio 11 (6-20) Glucose Level 102 mg/dL (70-99) Calcium Level 8.5 mg/dL (8.5-10.1) Total Bilirubin 1.2 mg/dL (0.2-1.0) Aspartate Amino Transf (AST/SGOT) 116 U/L (15-37) Alanine Aminotransferase (ALT/SGPT) 378 U/L (14-59) Alkaline Phosphatase 215 U/L (46-116) Total Protein 6.0 g/dL (6.4-8.2) Albumin 2.9 g/dL (3.4-5.0) Albumin/Globulin Ratio 0.9 (1.0-1.7) Lipase 380 U/L (73-393) Problem List gs pancreatitis labs improved, no pain OR today for lap flash Problems: MARLIN MIRANDA MD 08/14/17 1228: SURGICAL PROGRESS NOTE Assessment/Plan TO OR for lap flash with gram R/B/A d/w pt and pt's family. They appear to understand, questions are answered and they agree to proceed. Problems: KEVINRAYNA L WET PRESS TENDER Aug 14, 2017 09:47 MARLIN MIRANDA MD Aug 14, 2017 12:28
--- NOTE | 2017-08-14 09:55 | PDOC ---
Subjective: Subjective: No pain. Objective: Vital Signs: Vital Signs Date Time Temp Pulse Resp B/P (MAP) Pulse Ox O2 Delivery O2 Flow Rate FiO2 08/14/17 07:10 97.7 57 18 130/49 (76) 96 Room Air 97.7 Labs: Laboratory Tests Test 08/14/17 04:00 White Blood Count 6.6 x10^3/uL Red Blood Count 4.13 x10^6/uL Hemoglobin 13.0 g/dL Hematocrit 38.4 % Mean Corpuscular Volume 93 fL Mean Corpuscular Hemoglobin 31 pg Mean Corpuscular Hemoglobin Concent 34 g/dL Red Cell Distribution Width 13.5 % Platelet Count 284 x10^3/uL Neutrophils (%) (Auto) 44 % Lymphocytes (%) (Auto) 41 % Monocytes (%) (Auto) 8 % Eosinophils (%) (Auto) 6 % Basophils (%) (Auto) 1 % Neutrophils # (Auto) 2.9 x10^3uL Lymphocytes # (Auto) 2.7 x10^3/uL Monocytes # (Auto) 0.5 x10^3/uL Eosinophils # (Auto) 0.4 x10^3/uL Basophils # (Auto) 0.1 x10^3/uL Sodium Level 143 mmol/L Potassium Level 3.6 mmol/L Chloride Level 110 mmol/L Carbon Dioxide Level 24 mmol/L Anion Gap 9 Blood Urea Nitrogen 9 mg/dL Creatinine 0.8 mg/dL Estimated GFR (Cockcroft-Gault) 74.2 BUN/Creatinine Ratio 11 Glucose Level 102 mg/dL Calcium Level 8.5 mg/dL Total Bilirubin 1.2 mg/dL Aspartate Amino Transf (AST/SGOT) 116 U/L Alanine Aminotransferase (ALT/SGPT) 378 U/L Alkaline Phosphatase 215 U/L Total Protein 6.0 g/dL Albumin 2.9 g/dL Albumin/Globulin Ratio 0.9 Lipase 380 U/L PE: GEN: NAD LUNGS: CTAB HEART: RRR ABD: S/ND/NT NEURO/PSYCH: A & O 3 A/P: Gallstone pancreatitis Elevated lipase (resolved), elevated LFTs (improved) -- Await surgery, IOC. CASSIDY MCQUEEN Aug 14, 2017 09:55
[2017-08-14] MEDS: PANTOPRAZOLE IV PUSH 40 MG VIAL. IVP SCH (11:05)
[2017-08-14] MEDS: IV NORMAL SALINE 1000ML BAG 1,000 ML IV SCH ×2 (11:05→15:11)
--- NOTE | 2017-08-14 12:42 | PDOC ---
PROGRESS NOTES Chief Complaint Chief Complaint Acute pancreatitis Possible gallstone pancreatitis Nausea and vomiting and diarrhea Cholangitis History of Present Illness History of Present Illness VSS Patient preparing for surgery today - lap flash Family present Discussed with nurse Abdomen normal Liver enzymes improving, Vitals Vitals Vital Signs Date Time Temp Pulse Resp B/P (MAP) Pulse Ox O2 Delivery O2 Flow Rate FiO2 08/14/17 12:22 99.0 57 16 161/71 94 Room Air 99.0 Physical Exam General: Alert, Oriented X3, Cooperative, No acute distress Heart: Regular rate, Normal S1, Normal S2 Abdomen: Soft, No tenderness Extremities: No clubbing, No cyanosis Skin: No rashes, No breakdown Labs LABS Laboratory Tests Test 08/14/17 04:00 White Blood Count 6.6 x10^3/uL (4.0-11.0) Red Blood Count 4.13 x10^6/uL (3.50-5.40) Hemoglobin 13.0 g/dL (12.0-15.5) Hematocrit 38.4 % (36.0-47.0) Mean Corpuscular Volume 93 fL (79-100) Mean Corpuscular Hemoglobin 31 pg (25-35) Mean Corpuscular Hemoglobin Concent 34 g/dL (31-37) Red Cell Distribution Width 13.5 % (11.5-14.5) Platelet Count 284 x10^3/uL (140-400) Neutrophils (%) (Auto) 44 % (31-73) Lymphocytes (%) (Auto) 41 % (24-48) Monocytes (%) (Auto) 8 % (0-9) Eosinophils (%) (Auto) 6 % (0-3) Basophils (%) (Auto) 1 % (0-3) Neutrophils # (Auto) 2.9 x10^3uL (1.8-7.7) Lymphocytes # (Auto) 2.7 x10^3/uL (1.0-4.8) Monocytes # (Auto) 0.5 x10^3/uL (0.0-1.1) Eosinophils # (Auto) 0.4 x10^3/uL (0.0-0.7) Basophils # (Auto) 0.1 x10^3/uL (0.0-0.2) Sodium Level 143 mmol/L (136-145) Potassium Level 3.6 mmol/L (3.5-5.1) Chloride Level 110 mmol/L (98-107) Carbon Dioxide Level 24 mmol/L (21-32) Anion Gap 9 (6-14) Blood Urea Nitrogen 9 mg/dL (7-20) Creatinine 0.8 mg/dL (0.6-1.0) Estimated GFR (Cockcroft-Gault) 74.2 BUN/Creatinine Ratio 11 (6-20) Glucose Level 102 mg/dL (70-99) Calcium Level 8.5 mg/dL (8.5-10.1) Total Bilirubin 1.2 mg/dL (0.2-1.0) Aspartate Amino Transf (AST/SGOT) 116 U/L (15-37) Alanine Aminotransferase (ALT/SGPT) 378 U/L (14-59) Alkaline Phosphatase 215 U/L (46-116) Total Protein 6.0 g/dL (6.4-8.2) Albumin 2.9 g/dL (3.4-5.0) Albumin/Globulin Ratio 0.9 (1.0-1.7) Lipase 380 U/L (73-393) Review of Systems Review of Systems Denies SOA or dyspnea A&O x3 Assessment and Plan Assessmemt and Plan Assessment Acute pancreatitis Possible gallstone pancreatitis Nausea and vomiting and diarrhea Cholangitis Plan Patient is preparing for surgery today Continue medications Recheck labs PT/OT Appreciate specialty input Problems: Comment Review of Relevant I have reviewed the following items los (where applicable) has been applied. Labs Laboratory Tests Test 08/13/17 04:55 08/14/17 04:00 White Blood Count 7.0 x10^3/uL (4.0-11.0) 6.6 x10^3/uL (4.0-11.0) Red Blood Count 4.20 x10^6/uL (3.50-5.40) 4.13 x10^6/uL (3.50-5.40) Hemoglobin 13.3 g/dL (12.0-15.5) 13.0 g/dL (12.0-15.5) Hematocrit 39.4 % (36.0-47.0) 38.4 % (36.0-47.0) Mean Corpuscular Volume 94 fL (79-100) 93 fL (79-100) Mean Corpuscular Hemoglobin 32 pg (25-35) 31 pg (25-35) Mean Corpuscular Hemoglobin Concent 34 g/dL (31-37) 34 g/dL (31-37) Red Cell Distribution Width 13.6 % (11.5-14.5) 13.5 % (11.5-14.5) Platelet Count 284 x10^3/uL (140-400) 284 x10^3/uL (140-400) Neutrophils (%) (Auto) 50 % (31-73) 44 % (31-73) Lymphocytes (%) (Auto) 35 % (24-48) 41 % (24-48) Monocytes (%) (Auto) 8 % (0-9) 8 % (0-9) Eosinophils (%) (Auto) 6 % (0-3) 6 % (0-3) Basophils (%) (Auto) 1 % (0-3) 1 % (0-3) Neutrophils # (Auto) 3.5 x10^3uL (1.8-7.7) 2.9 x10^3uL (1.8-7.7) Lymphocytes # (Auto) 2.5 x10^3/uL (1.0-4.8) 2.7 x10^3/uL (1.0-4.8) Monocytes # (Auto) 0.6 x10^3/uL (0.0-1.1) 0.5 x10^3/uL (0.0-1.1) Eosinophils # (Auto) 0.4 x10^3/uL (0.0-0.7) 0.4 x10^3/uL (0.0-0.7) Basophils # (Auto) 0.1 x10^3/uL (0.0-0.2) 0.1 x10^3/uL (0.0-0.2) Sodium Level 143 mmol/L (136-145) 143 mmol/L (136-145) Potassium Level 4.0 mmol/L (3.5-5.1) 3.6 mmol/L (3.5-5.1) Chloride Level 109 mmol/L (98-107) 110 mmol/L (98-107) Carbon Dioxide Level 24 mmol/L (21-32) 24 mmol/L (21-32) Anion Gap 10 (6-14) 9 (6-14) Blood Urea Nitrogen 12 mg/dL (7-20) 9 mg/dL (7-20) Creatinine 0.8 mg/dL (0.6-1.0) 0.8 mg/dL (0.6-1.0) Estimated GFR (Cockcroft-Gault) 74.2 74.2 BUN/Creatinine Ratio 15 (6-20) 11 (6-20) Glucose Level 99 mg/dL (70-99) 102 mg/dL (70-99) Calcium Level 8.5 mg/dL (8.5-10.1) 8.5 mg/dL (8.5-10.1) Total Bilirubin 2.9 mg/dL (0.2-1.0) 1.2 mg/dL (0.2-1.0) Gamma Glutamyl Transpeptidase 718 U/L (5-55) Aspartate Amino Transf (AST/SGOT) 320 U/L (15-37) 116 U/L (15-37) Alanine Aminotransferase (ALT/SGPT) 581 U/L (14-59) 378 U/L (14-59) Alkaline Phosphatase 265 U/L (46-116) 215 U/L (46-116) Total Protein 6.0 g/dL (6.4-8.2) 6.0 g/dL (6.4-8.2) Albumin 3.2 g/dL (3.4-5.0) 2.9 g/dL (3.4-5.0) Albumin/Globulin Ratio 1.1 (1.0-1.7) 0.9 (1.0-1.7) Triglycerides Level 36 mg/dL (0-150) Cholesterol Level 180 mg/dL (0-200) LDL Cholesterol, Calculated 68 mg/dL (0-100) VLDL Cholesterol, Calculated 7 mg/dL (0-40) Non-HDL Cholesterol Calculated 75 mg/dL (0-129) HDL Cholesterol 105 mg/dL (40-60) Cholesterol/HDL Ratio 1.7 Lipase 3948 U/L (73-393) 380 U/L (73-393) Laboratory Tests Test 08/14/17 04:00 White Blood Count 6.6 x10^3/uL (4.0-11.0) Red Blood Count 4.13 x10^6/uL (3.50-5.40) Hemoglobin 13.0 g/dL (12.0-15.5) Hematocrit 38.4 % (36.0-47.0) Mean Corpuscular Volume 93 fL (79-100) Mean Corpuscular Hemoglobin 31 pg (25-35) Mean Corpuscular Hemoglobin Concent 34 g/dL (31-37) Red Cell Distribution Width 13.5 % (11.5-14.5) Platelet Count 284 x10^3/uL (140-400) Neutrophils (%) (Auto) 44 % (31-73) Lymphocytes (%) (Auto) 41 % (24-48) Monocytes (%) (Auto) 8 % (0-9) Eosinophils (%) (Auto) 6 % (0-3) Basophils (%) (Auto) 1 % (0-3) Neutrophils # (Auto) 2.9 x10^3uL (1.8-7.7) Lymphocytes # (Auto) 2.7 x10^3/uL (1.0-4.8) Monocytes # (Auto) 0.5 x10^3/uL (0.0-1.1) Eosinophils # (Auto) 0.4 x10^3/uL (0.0-0.7) Basophils # (Auto) 0.1 x10^3/uL (0.0-0.2) Sodium Level 143 mmol/L (136-145) Potassium Level 3.6 mmol/L (3.5-5.1) Chloride Level 110 mmol/L (98-107) Carbon Dioxide Level 24 mmol/L (21-32) Anion Gap 9 (6-14) Blood Urea Nitrogen 9 mg/dL (7-20) Creatinine 0.8 mg/dL (0.6-1.0) Estimated GFR (Cockcroft-Gault) 74.2 BUN/Creatinine Ratio 11 (6-20) Glucose Level 102 mg/dL (70-99) Calcium Level 8.5 mg/dL (8.5-10.1) Total Bilirubin 1.2 mg/dL (0.2-1.0) Aspartate Amino Transf (AST/SGOT) 116 U/L (15-37) Alanine Aminotransferase (ALT/SGPT) 378 U/L (14-59) Alkaline Phosphatase 215 U/L (46-116) Total Protein 6.0 g/dL (6.4-8.2) Albumin 2.9 g/dL (3.4-5.0) Albumin/Globulin Ratio 0.9 (1.0-1.7) Lipase 380 U/L (73-393) Medications Current Medications Enoxaparin Sodium (Lovenox Per Pharmacy Prophylaxis Dosing) 1 each PRN DAILY PRN MC SEE COMMENTS; Start 08/12/17 at 15:45 Oxycodone HCl (Roxicodone) 5 mg PRN Q6HRS PRN PO PAIN SEVERE; Start 08/12/17 at 15:45 Fentanyl Citrate (Fentanyl 2ml Vial) 50 mcg PRN Q2HR PRN IV PAIN SEVERE; Start 08/12/17 at 15:45 Piperacillin Sod/ Tazobactam Sod (Zosyn Per Pharmacy) 1 each PRN DAILY PRN MC SEE COMMENTS; Start 08/12/17 at 15:45 Enoxaparin Sodium (Lovenox 40mg Syringe) 40 mg Q24H SQ ; Start 08/12/17 at 21: 00 Piperacillin Sod/ Tazobactam Sod (Zosyn) 3.375 gm Q6HRS IVP Last administered on 08/14/17 06:05; Start 08/12/17 at 18:00 Sodium Chloride 1,000 ml @ 100 mls/hr Q10H IV Last administered on 08/14/17 11:05; Start 08/12/17 at 17:15 Saliva Substitute (Biotene Moisturizing Mouth) 2 spray PRN Q15MIN PRN PO DRY MOUTH; Start 08/12/17 at 17:45 Ondansetron HCl (Zofran) 4 mg PRN Q8HRS PRN IV NAUSEA/VOMITING 1ST CHOICE; Start 08/12/17 at 17:45 Acetaminophen (Tylenol) 650 mg PRN Q6HRS PRN PO HEADACHE Last administered on 08/13/17 07:48; Start 08/12/17 at 19:45 Pantoprazole Sodium (PROTONIX VIAL for IV PUSH) 40 mg DAILYAC IVP Last administered on 08/14/17 11:05; Start 08/13/17 at 14:00 Vitals/I & O Vital Sign - Last 24 Hours 08/13/17 08/13/17 08/13/17 08/13/17 14:45 19:00 19:25 23:00 Temp 98.2 97.9 97.5 98.2 97.9 97.5 Pulse 55 57 60 Resp 18 20 20 B/P (MAP) 120/47 (71) 122/49 (73) 115/50 (71) Pulse Ox 93 95 95 O2 Delivery Room Air Room Air Room Air Room Air 08/14/17 08/14/17 08/14/17 08/14/17 03:32 07:10 08:00 10:55 Temp 96.4 97.7 97.9 96.4 97.7 97.9 Pulse 63 57 59 Resp 20 18 18 B/P (MAP) 113/43 (66) 130/49 (76) 131/69 (89) Pulse Ox 95 96 95 O2 Delivery Room Air Room Air Room Air Room Air 08/14/17 12:22 Temp 99.0 99.0 Pulse 57 Resp 16 B/P (MAP) 161/71 Pulse Ox 94 O2 Delivery Room Air Intake and Output 08/13/17 08/13/17 08/14/17 14:59 22:59 06:59 Intake Total 200 ml 120 ml Output Total 1 ml 2 ml Balance -1 ml 198 ml 120 ml ARCHIE MICHAEL III DO Aug 14, 2017 12:42
[2017-08-14] MEDS ORDERED: FAMOTIDINE 20 MG/2 ML VIAL ONE (12:57)
[2017-08-14] MEDS ORDERED: ONDANSETRON PF 4 MG/2 ML VIAL. ONE (12:57)
[2017-08-14] MEDS ORDERED: DEXAMETHASONE SOD PHOS 20 MG/5 ML VIAL. ONE (12:57)
[2017-08-14] MEDS ORDERED: PROPOFOL 20 ML IV ONE (12:57)
[2017-08-14] MEDS ORDERED: MIDAZOLAM HCL/PF 2 MG/2 ML VIAL. ONE (12:58)
[2017-08-14] MEDS ORDERED: ROCURONIUM 50 MG/5 ML VIAL. ONE (12:58)
[2017-08-14] MEDS ORDERED: fentaNYL PF VIAL 100 MCG/2 ML VIAL ONE (12:58)
[2017-08-14] MEDS ORDERED: BUPIVAC MPF-EPI 0.5%-1:200000 30 ML VIAL. ONE (13:00)
[2017-08-14] MEDS ORDERED: SURGICEL HEMOSTAT 2X3 EACH. ONE (13:00)
[2017-08-14] MEDS ORDERED: BISACODYL 10 MG SUPP.RECT. ONE (13:00)
[2017-08-14] MEDS ORDERED: IOHEXOL 300 MG/ML 50 ML VIAL. ONE (13:00)
[2017-08-14] MEDS ORDERED: HEPARIN for IV BOLUS 10,000 UNIT/10 ML VIAL. ONE (13:00)
[2017-08-14] MEDS ORDERED: LIDOCAINE 2% PF Vial for OR 5 ML VIAL. ONE (13:00)
[2017-08-14] MEDS ORDERED: NEOSTIGMINE METHYLSULFATE 5 MG/5 ML SYRINGE. ONE (13:33)
[2017-08-14] MEDS ORDERED: diphenhydrAMINE 50 MG/ML VIAL ONE (13:33)
[2017-08-14] MEDS ORDERED: KETOROLAC 30 MG/ML INJ FOR OR. INJ ONE (13:33)
[2017-08-14] MEDS ORDERED: GLYCOPYRROLATE 1 MG/5 ML VIAL. ONE (13:34)
[2017-08-14] MEDS ORDERED: PIPERACILLIN/TAZO IV Push 3.375 GM VIAL. IVP ONE (13:45)
[2017-08-14] MEDS ORDERED: SEVOFLURANE 61 TO 120 MINUTES. IH ONE (14:17)
--- NOTE | 2017-08-14 14:28 | RAD ---
Intraoperative cholangiogram 08/14/2017 Clinical history: Left laparoscopic cholecystectomy. An intraoperative cholangiogram was performed. The total fluoroscopic time is listed as 9.8 seconds. Two Digital spot radiographs of the right upper quadrant of the abdomen were obtained. These images demonstrate contrast opacifying the cystic duct remnant, common hepatic duct, the left and right hepatic ducts and the common bile duct. These ducts are normal in caliber. Free spillage of contrast into the duodenum is noted. Impression: Negative study.
[2017-08-14] MEDS ORDERED: IV RINGERS,LACTATED 1000ML 1,000 ML IV SCH (14:31)
[2017-08-14] MEDS ORDERED: ONDANSETRON PF 4 MG/2 ML VIAL. IV PRN ×2 (14:45→15:15)
[2017-08-14] MEDS ORDERED: PROCHLORPERAZINE 10 MG/2 ML VIAL. IV PRN (14:45)
[2017-08-14] MEDS ORDERED: MORPHINE SULFATE 2 MG/ML DISP.SYRIN. IV PRN (14:45)
[2017-08-14] MEDS ORDERED: fentaNYL PF VIAL 100 MCG/2 ML VIAL IV PRN ×2 (14:45)
[2017-08-14] MEDS ORDERED: LIDOCAINE 1% PF 2 ML VIAL. ID PRN (14:45)
[2017-08-14] MEDS ORDERED: HYDROmorphone 2 MG/ML VIAL IV PRN (14:45)
[2017-08-14] MEDS ORDERED: 0.9 % SODIUM CHLORIDE 10 ML DISP.SYRIN. IV PRN (15:15)
[2017-08-14] MEDS ORDERED: DEXTROSE 50% 25 GM / 50ML DISP.SYRIN. IV PRN (15:15)
--- NOTE | 2017-08-14 15:25 | PDOC4 ---
OPERATIVE NOTE Date: Date: Aug 14, 2017 Pre-Op Diagnosis: gallstone pancreatitis Post-Op Diagnosis: same Procedure Performed: Laparoscopic cholecystectomy with cholangiogram Surgeon: Vishnu Miradna Anesthesia Type: GETA plus 0.5% marcaine Blood Loss: 50 Specimans Obtained: gallbladder Findings: indurated gallbladder, gallstones in cystic duct, normal cholangiogram Complications: none Operative Note: After obtaining informed consent, patient was taken to the OR, induced under GETA, and prepped in the usual fashion. 5 mm port placed in supraumbilical and RUQ, with 12 port placed in epigastric, all under laparoscopic guidance. Abdominal cavity explored and otherwise unremarkable. Gallbladder noted to be edematous. Gallbladder grasped and triangle exposed. Critical view was obtained, which demonstrated cystic duct and artery as only structures going into the gallbladder. Cholangiogram obtained and unremarkable. Multiple stones evacuated from the cystic duct. Cystic duct ligated with clips and hemolok. Gallbladder taken off the fossa using cautery, placed in a bag, delivered and sent to pathology. Copious irrigation. No evidence of bleeding or other pathology. Ports removed and no evidence of bleeding. Fascia repaired with 0 vicryl. Skin repaired with 4 0 monocryl. Dressing applied. All counts correct. No evidence of immediate complications. VISHNU MIRANDA MD Aug 14, 2017 15:25
[2017-08-14] MEDS: IV RINGERS,LACTATED 1000ML 1,000 ML IV SCH (18:12)
[2017-08-14] MEDS: HYDROcodone/APAP 5/325MG 1 TAB TABLET PO PRN ×2 (18:17→23:52)
[2017-08-14] MEDS: DOCUSATE SODIUM 100 MG CAPSULE. PO SCH (20:36)
[2017-08-14] MEDS: ENOXAPARIN 40 MG/0.4 ML SYRINGE. SQ SCH (20:36)
[2017-08-15 03:00] VITALS: BP 106/46
[2017-08-15] MEDS: IV RINGERS,LACTATED 1000ML 1,000 ML IV SCH ×2 (03:12→11:30)
[2017-08-15] MEDS: IV NORMAL SALINE 1000ML BAG 1,000 ML IV SCH ×2 (05:15→14:10)
[2017-08-15 05:21] LABS: BASO % 0 % (0-3); EOS % 0 % (0-3); HEMATOCRIT 38.9 % (36.0-47.0); HEMOGLOBIN 12.7 g/dL (12.0-15.5); LYMPH # 1.5 x10^3/uL (1.0-4.8); LYMPH % 18 % (24-48); MEAN CORPUSCULAR HEMOGLOBIN 31 pg (25-35); MEAN CORPUSCULAR HGB CONC 33 g/dL (31-37); MEAN CORPUSCULAR VOLUME 94 fL (79-100); MONO % 7 % (0-9); NEUT % 76 % (31-73); PLATELET COUNT 284 x10^3/uL (140-400); RED BLOOD COUNT 4.14 x10^6/uL (3.50-5.40); RED CELL DISTRIBUTION WIDTH 13.4 % (11.5-14.5); WHITE BLOOD COUNT 8.8 x10^3/uL (4.0-11.0)
[2017-08-15 05:42] LABS: CALCIUM 8.4 mg/dL (8.5-10.1); CREATININE 0.8 mg/dL (0.6-1.0); GFR 74.2
[2017-08-15] MEDS: PIPERACILLIN/TAZO IV Push 3.375 GM VIAL. IVP SCH ×2 (05:50→13:28)
[2017-08-15 07:00] VITALS: BP 107/72
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
--- NOTE | 2017-08-15 09:50 | PDOC ---
Subjective: Subjective: Some RUQ discomfort. Says incision bled earlier. Tolerating PO, not much appetite. Passing gas. Objective: Vital Signs: Vital Signs Date Time Temp Pulse Resp B/P (MAP) Pulse Ox O2 Delivery O2 Flow Rate FiO2 08/15/17 07:00 97.9 50 18 107/72 (84) 92 Room Air 97.9 08/14/17 15:29 2 Labs: Laboratory Tests Test 08/15/17 04:00 White Blood Count 8.8 x10^3/uL Red Blood Count 4.14 x10^6/uL Hemoglobin 12.7 g/dL Hematocrit 38.9 % Mean Corpuscular Volume 94 fL Mean Corpuscular Hemoglobin 31 pg Mean Corpuscular Hemoglobin Concent 33 g/dL Red Cell Distribution Width 13.4 % Platelet Count 284 x10^3/uL Neutrophils (%) (Auto) 76 % Lymphocytes (%) (Auto) 18 % Monocytes (%) (Auto) 7 % Eosinophils (%) (Auto) 0 % Basophils (%) (Auto) 0 % Neutrophils # (Auto) 6.7 x10^3uL Lymphocytes # (Auto) 1.5 x10^3/uL Monocytes # (Auto) 0.6 x10^3/uL Eosinophils # (Auto) 0.0 x10^3/uL Basophils # (Auto) 0.0 x10^3/uL Sodium Level 142 mmol/L Potassium Level 4.0 mmol/L Chloride Level 106 mmol/L Carbon Dioxide Level 25 mmol/L Anion Gap 11 Blood Urea Nitrogen 11 mg/dL Creatinine 0.8 mg/dL Estimated GFR (Cockcroft-Gault) 74.2 Glucose Level 102 mg/dL Calcium Level 8.4 mg/dL Imaging: IOC 08/14/17 Impression: Negative study. PE: GEN: NAD LUNGS: CTAB HEART: RRR ABD: soft, dried blood on bandage NEURO/PSYCH: A & O 3 A/P: S/p cholecystectomy, normal IOC Elevated lipase (resolved), elevated LFTs (improved 08/14) -- Continue per surgery. CASSIDY MCQUEEN Aug 15, 2017 09:50
[2017-08-15 10:44] VITALS: BP 125/71
[2017-08-15] MEDS: PANTOPRAZOLE IV PUSH 40 MG VIAL. IVP SCH (10:51)
[2017-08-15] MEDS: DOCUSATE SODIUM 100 MG CAPSULE. PO SCH (10:51)
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
[2017-08-15 14:55] VITALS: BP 130/52
--- NOTE | 2017-08-15 14:59 | PDOC3 ---
Discharge Summary Date of Admission: Aug 12, 2017 Date of Discharge: Aug 15, 2017 Follow-Up: 3-5 days Admitting Diagnosis comment: cholecystitis DISCHARGE DIAGNOSIS Acute pancreatitis gallstone pancreatitis Nausea and vomiting and diarrhea Cholangitis pod #1 doig well , wants to go home, no pain, does not want pain meds History of Present Illness History of Present Illness VSS surgery YESTERDAY- lap flash Family present Abdomen normal Liver enzymes improving, Vitals Vitals Vital Signs Date Time Temp Pulse Resp B/P (MAP) Pulse Ox O2 Delivery O2 Flow Rate FiO2 08/15/17 10:44 97.9 53 18 125/71 (89) 95 Room Air 97.9 08/14/17 15:29 2 Physical Exam General: Alert, Oriented X3, Cooperative, No acute distress Heart: Regular rate, Normal S1, Normal S2 Abdomen: Soft, Other (incisions dry) Extremities: No clubbing, No cyanosis Skin: No rashes, No breakdown Problems: Brief Hospital Course Ms. Granger is a 56 old [sex] who presented with [ ] CONDITION AT DISCHARGE: Stable Discharge Medications Current Medications Enoxaparin Sodium (Lovenox Per Pharmacy Prophylaxis Dosing) 1 each PRN DAILY PRN MC SEE COMMENTS; Start 08/12/17 at 15:45 Oxycodone HCl (Roxicodone) 5 mg PRN Q6HRS PRN PO PAIN SEVERE; Start 08/12/17 at 15:45 Fentanyl Citrate (Fentanyl 2ml Vial) 50 mcg PRN Q2HR PRN IV PAIN SEVERE; Start 08/12/17 at 15:45 Piperacillin Sod/ Tazobactam Sod (Zosyn Per Pharmacy) 1 each PRN DAILY PRN MC SEE COMMENTS; Start 08/12/17 at 15:45 Enoxaparin Sodium (Lovenox 40mg Syringe) 40 mg Q24H SQ Last administered on t 20:36; Start 08/12/17 at 21:00 Piperacillin Sod/ Tazobactam Sod (Zosyn) 3.375 gm Q6HRS IVP Last administered on 08/15/17 13:28; Start 08/12/17 at 18:00 Sodium Chloride 1,000 ml @ 100 mls/hr Q10H IV Last administered on 08/14/17 15:11; Start 08/12/17 at 17:15 Saliva Substitute (Biotene Moisturizing Mouth) 2 spray PRN Q15MIN PRN PO DRY MOUTH; Start 08/12/17 at 17:45 Ondansetron HCl (Zofran) 4 mg PRN Q8HRS PRN IV NAUSEA/VOMITING 1ST CHOICE; Start 08/12/17 at 17:45 Acetaminophen (Tylenol) 650 mg PRN Q6HRS PRN PO HEADACHE Last administered on 08/13/17 07:48; Start 08/12/17 at 19:45 Pantoprazole Sodium (PROTONIX VIAL for IV PUSH) 40 mg DAILYAC IVP Last administered on 08/15/17 10:51; Start 08/13/17 at 14:00 Propofol 20 ml @ As Directed STK-MED ONCE IV ; Start 08/14/17 at 12:57; Stop 08/14/17 at 12:58; Status DC Dexamethasone Sodium Phosphate (Decadron) 20 mg STK-MED ONCE .ROUTE ; Start at 12:57; Stop 08/14/17 at 12:58; Status DC Famotidine (Pepcid Vial) 20 mg STK-MED ONCE .ROUTE ; Start 08/14/17 at 12:57; Stop 08/14/17 at 12:58; Status DC Ondansetron HCl (Zofran) 4 mg STK-MED ONCE .ROUTE ; Start 08/14/17 at 12:57; Stop 08/14/17 at 12:58; Status DC Rocuronium Fenwick (Zemuron) 50 mg STK-MED ONCE .ROUTE ; Start 08/14/17 at 12: 58; Stop 08/14/17 at 12:59; Status DC Fentanyl Citrate (Fentanyl 2ml Vial) 100 mcg STK-MED ONCE .ROUTE ; Start at 12:58; Stop 08/14/17 at 12:59; Status DC Midazolam HCl (Versed) 2 mg STK-MED ONCE .ROUTE ; Start 08/14/17 at 12:58; Stop 08/14/17 at 12:59; Status DC Iohexol (Omnipaque 300 Mg/ml) 50 ml STK-MED ONCE .ROUTE Last administered on 15:23; Start 08/14/17 at 13:00; Stop 08/14/17 at 13:01; Status DC Bupivacaine HCl/ Epinephrine Bitart (Sensorcain-Mpf Epi 0.5%-1:117532) 30 ml STK -MED ONCE .ROUTE Last administered on 08/14/17 15:23; Start 08/14/17 at 13: 00; Stop 08/14/17 at 13:01; Status DC Lidocaine HCl (Lidocaine Pf 2% Vial) 5 ml STK-MED ONCE .ROUTE ; Start 08/14/17 at 13:00; Stop 08/14/17 at 13:01; Status DC Cellulose 1 each STK-MED ONCE .ROUTE ; Start 08/14/17 at 13:00; Stop 08/14/17 at 13:01; Status DC Heparin Sodium (Porcine) (Heparin Sodium) 10,000 unit STK-MED ONCE .ROUTE Last administered on 08/14/17 15:24; Start 08/14/17 at 13:00; Stop 08/14/17 at 13 :01; Status DC Bisacodyl (Dulcolax Supp) 10 mg STK-MED ONCE .ROUTE ; Start 08/14/17 at 13:00; Stop 08/14/17 at 13:01; Status DC Diphenhydramine HCl (Benadryl) 50 mg STK-MED ONCE .ROUTE ; Start 08/14/17 at 13 :33; Stop 08/14/17 at 13:34; Status DC Ketorolac Tromethamine (Toradol For Or Only) 30 mg STK-MED ONCE INJ ; Start at 13:33; Stop 08/14/17 at 13:34; Status DC Neostigmine Methylsulfate 5 mg STK-MED ONCE .ROUTE ; Start 08/14/17 at 13:33; Stop 08/14/17 at 13:34; Status DC Glycopyrrolate (Robinul) 1 mg STK-MED ONCE .ROUTE ; Start 08/14/17 at 13:34; Stop 08/14/17 at 13:35; Status DC Piperacillin Sod/ Tazobactam Sod (Zosyn) 3.375 gm 1X ONCE IVP ; Start at 13:45; Stop 08/14/17 at 13:46; Status DC Sevoflurane (Ultane) 60 ml STK-MED ONCE IH ; Start 08/14/17 at 14:17; Stop at 14:18; Status DC Ondansetron HCl (Zofran) 4 mg PRN Q6HRS PRN IV NAUSEA/VOMITING; Start at 14:45; Stop 08/14/17 at 20:00; Status DC Fentanyl Citrate (Fentanyl 2ml Vial) 25 mcg PRN Q5MIN PRN IV MILD PAIN; Start 08/14/17 at 14:45; Stop 08/14/17 at 20:00; Status DC Fentanyl Citrate (Fentanyl 2ml Vial) 50 mcg PRN Q5MIN PRN IV MODERATE PAIN; Start 08/14/17 at 14:45; Stop 08/14/17 at 20:00; Status DC Morphine Sulfate 1 mg PRN Q10MIN PRN IV SEVERE PAIN; Start 08/14/17 at 14:45; Stop 08/14/17 at 20:00; Status DC Ringer's Solution 1,000 ml @ 30 mls/hr Q24H IV ; Start 08/14/17 at 14:31; Stop 08/15/17 at 02:30; Status DC Lidocaine HCl (Xylocaine-Mpf 1% Vial) 2 ml 1X PRN PRN ID IV START; Start 08/14 at 14:45; Stop 08/14/17 at 20:00; Status DC Hydromorphone HCl (Dilaudid) 0.5 mg PRN Q10MIN PRN IV SEV PAIN, Second choice; Start 08/14/17 at 14:45; Stop 08/14/17 at 20:00; Status DC Prochlorperazine Edisylate (Compazine) 5 mg PACU PRN PRN IV NAUSEA, MRX1; Start 08/14/17 at 14:45; Stop 08/14/17 at 20:00; Status DC Sodium Chloride (Normal Saline Flush) 3 ml QSHIFT PRN IV AFTER MEDS AND BLOOD DRAWS; Start 08/14/17 at 15:15 Ringer's Solution 1,000 ml @ 100 mls/hr Q10H IV Last administered on t 11:30; Start 08/14/17 at 15:30 Dextrose (Dextrose 50%-Water Syringe) 12.5 gm PRN Q15MIN PRN IV SEE COMMENTS; Start 08/14/17 at 15:15 Acetaminophen/ Hydrocodone Bitart (Lortab 5/325) 1 tab PRN Q4HRS PRN PO MILD PAIN Last administered on 08/14/17t 23:52; Start 08/14/17 at 15:15 Docusate Sodium (Colace) 100 mg BID PO Last administered on 08/15/17 10:51; Start 08/14/17 at 21:00 Ondansetron HCl (Zofran) 4 mg PRN Q6HRS PRN IV NAUESA, 1ST CHOICE; Start 08/14 at 15:15 Vital Signs Vital Signs Date Time Temp Pulse Resp B/P (MAP) Pulse Ox O2 Delivery O2 Flow Rate FiO2 08/15/17 10:44 97.9 53 18 125/71 (89) 95 Room Air 97.9 08/14/17 15:29 2 Labs Laboratory Tests Test 08/14/17 04:00 08/15/17 04:00 White Blood Count 6.6 x10^3/uL (4.0-11.0) 8.8 x10^3/uL (4.0-11.0) Red Blood Count 4.13 x10^6/uL (3.50-5.40) 4.14 x10^6/uL (3.50-5.40) Hemoglobin 13.0 g/dL (12.0-15.5) 12.7 g/dL (12.0-15.5) Hematocrit 38.4 % (36.0-47.0) 38.9 % (36.0-47.0) Mean Corpuscular Volume 93 fL (79-100) 94 fL (79-100) Mean Corpuscular Hemoglobin 31 pg (25-35) 31 pg (25-35) Mean Corpuscular Hemoglobin Concent 34 g/dL (31-37) 33 g/dL (31-37) Red Cell Distribution Width 13.5 % (11.5-14.5) 13.4 % (11.5-14.5) Platelet Count 284 x10^3/uL (140-400) 284 x10^3/uL (140-400) Neutrophils (%) (Auto) 44 % (31-73) 76 % (31-73) Lymphocytes (%) (Auto) 41 % (24-48) 18 % (24-48) Monocytes (%) (Auto) 8 % (0-9) 7 % (0-9) Eosinophils (%) (Auto) 6 % (0-3) 0 % (0-3) Basophils (%) (Auto) 1 % (0-3) 0 % (0-3) Neutrophils # (Auto) 2.9 x10^3uL (1.8-7.7) 6.7 x10^3uL (1.8-7.7) Lymphocytes # (Auto) 2.7 x10^3/uL (1.0-4.8) 1.5 x10^3/uL (1.0-4.8) Monocytes # (Auto) 0.5 x10^3/uL (0.0-1.1) 0.6 x10^3/uL (0.0-1.1) Eosinophils # (Auto) 0.4 x10^3/uL (0.0-0.7) 0.0 x10^3/uL (0.0-0.7) Basophils # (Auto) 0.1 x10^3/uL (0.0-0.2) 0.0 x10^3/uL (0.0-0.2) Sodium Level 143 mmol/L (136-145) 142 mmol/L (136-145) Potassium Level 3.6 mmol/L (3.5-5.1) 4.0 mmol/L (3.5-5.1) Chloride Level 110 mmol/L (98-107) 106 mmol/L (98-107) Carbon Dioxide Level 24 mmol/L (21-32) 25 mmol/L (21-32) Anion Gap 9 (6-14) 11 (6-14) Blood Urea Nitrogen 9 mg/dL (7-20) 11 mg/dL (7-20) Creatinine 0.8 mg/dL (0.6-1.0) 0.8 mg/dL (0.6-1.0) Estimated GFR (Cockcroft-Gault) 74.2 74.2 BUN/Creatinine Ratio 11 (6-20) Glucose Level 102 mg/dL (70-99) 102 mg/dL (70-99) Calcium Level 8.5 mg/dL (8.5-10.1) 8.4 mg/dL (8.5-10.1) Total Bilirubin 1.2 mg/dL (0.2-1.0) Aspartate Amino Transf (AST/SGOT) 116 U/L (15-37) Alanine Aminotransferase (ALT/SGPT) 378 U/L (14-59) Alkaline Phosphatase 215 U/L (46-116) Total Protein 6.0 g/dL (6.4-8.2) Albumin 2.9 g/dL (3.4-5.0) Albumin/Globulin Ratio 0.9 (1.0-1.7) Lipase 380 U/L (73-393) Laboratory Tests Test 08/15/17 04:00 White Blood Count 8.8 x10^3/uL (4.0-11.0) Red Blood Count 4.14 x10^6/uL (3.50-5.40) Hemoglobin 12.7 g/dL (12.0-15.5) Hematocrit 38.9 % (36.0-47.0) Mean Corpuscular Volume 94 fL (79-100) Mean Corpuscular Hemoglobin 31 pg (25-35) Mean Corpuscular Hemoglobin Concent 33 g/dL (31-37) Red Cell Distribution Width 13.4 % (11.5-14.5) Platelet Count 284 x10^3/uL (140-400) Neutrophils (%) (Auto) 76 % (31-73) Lymphocytes (%) (Auto) 18 % (24-48) Monocytes (%) (Auto) 7 % (0-9) Eosinophils (%) (Auto) 0 % (0-3) Basophils (%) (Auto) 0 % (0-3) Neutrophils # (Auto) 6.7 x10^3uL (1.8-7.7) Lymphocytes # (Auto) 1.5 x10^3/uL (1.0-4.8) Monocytes # (Auto) 0.6 x10^3/uL (0.0-1.1) Eosinophils # (Auto) 0.0 x10^3/uL (0.0-0.7) Basophils # (Auto) 0.0 x10^3/uL (0.0-0.2) Sodium Level 142 mmol/L (136-145) Potassium Level 4.0 mmol/L (3.5-5.1) Chloride Level 106 mmol/L (98-107) Carbon Dioxide Level 25 mmol/L (21-32) Anion Gap 11 (6-14) Blood Urea Nitrogen 11 mg/dL (7-20) Creatinine 0.8 mg/dL (0.6-1.0) Estimated GFR (Cockcroft-Gault) 74.2 Glucose Level 102 mg/dL (70-99) Calcium Level 8.4 mg/dL (8.5-10.1) Allergies Allergies Coded Allergies Type Severity Reaction Last Updated Verified No Known Drug Allergies 08/14/17 No Disposition/Orders: D/C to Home Patient Instructions post op lap flash routine inst per surgery LILLIAN DHILLON MD Aug 15, 2017 14:59
--- NOTE | 2017-08-17 11:12 | PATHOLOGY ---
PATHOLOGY REPORT * * * * * * * * FINAL DIAGNOSIS: Gallbladder, laparoscopic cholecystectomy: - Cholelithiasis. - Chronic cholecystitis. COMMENT: There is no evidence of malignancy. (JPM:mml; 08/17/2017) REPORT ELECTRONICALLY SIGNED BY: Leonardo Carmona M.D. DATE/TIME: 08/17/2017 11:12 * * * * * * * * GROSS PATHOLOGY: Received in formalin labeled "Tamara Pereira, gallbladder and contents," is a 8.5 x 3.4 x 2.9 cm, intact gallbladder with light do to green, highly vascular serosal surfaces. Opening the gallbladder reveals dark green, velvety mucosa and an average wall thickness of 0.2 cm. Calculi are present, measuring 0.4 cm in maximum dimension, possessing a green color and granular appearance, and feeling friable to the touch. No masses are noted grossly. Reheater sections from the body and fundus are submitted along with the proximal margin in cassette A1. (TSD; 08/15/2017) INITIAL CPT CODE(S): A; 58563 Professional services [place] [address] Technical services performed by [facility] at [address] [place] [address] [address] [address]. SPECIMEN(S) RECEIVED: A.Gallbladder and contents CLINICAL HISTORY: Cholecystitis, pancreatitis PATIENT: TAMARA PEREIRA /AGE: 512/26/1960 (Age: 56) PATIENT #: [id number] ALT CASE #: SPECIMEN COLLECTION DATE: 08/14/2017 SPECIMEN RECEIVED DATE: 08/15/2017 [facility] - [address] [place] [address] - PHONE: [phone] * * * END OF REPORT * * *
== END 2017-08-15 13:41 | disposition home or self-care (01) | DRG 853 ==
LOC: 5 NORTH 15:21
PROVIDERS: ADMIT Internal Medicine; ATTEND Internal Medicine
PROC: BF101ZZ Fluoroscopy of Bile Ducts using Low Osmolar Contrast (ICD-10-PCS; 2017-08-14)
PROC: 0FT44ZZ Resection of Gallbladder, Percutaneous Endoscopic Approach (ICD-10-PCS; principal; 2017-08-14 13:00)
DX: A41.9 Sepsis, unspecified organism (principal); K85.10 Biliary acute pancreatitis without necrosis or infection; K80.62 Calculus of gallbladder and bile duct with acute cholecystitis without obstruction; K59.00 Constipation, unspecified; N20.0 Calculus of kidney; R74.0 Nonspecific elevation of levels of transaminase and lactic acid dehydrogenase [LDH]
CPT/HCPCS: 36415; 74300; 80048; 80053; 80061; 82977; 83690; 85025; 88304; C9113; J1100; J1200; J1644; J1650; J1885; J2250; J2405; J2543; J2704; J2710; J3010; J3490; J7030; J7120; Q9967; S0028; J2001

== ENCOUNTER → 2021-08-31 | Outpatient (CLI) | payer OTHER ==
--- NOTE | 2021-08-31 14:35 | KCIC ---
EXAMINATION: Magnetic resonance imaging (MRI) of the lumbar spine without contrast 08/31/2021 10:16 AM HISTORY: Radicular pain. Weakness of the left leg. TECHNIQUE: Multiplanar multi-weighted MRI of the lumbar spine was performed without intravenous contr ast using the standard lumbar spine protocol. Contrast information: None administered. COMPARISON: None available. FINDINGS: There is 2 mm retrolisthesis of L1 on L2. There is 1.2 cm anterolisthesis of L5 on S1 with chronic bi lateral L5 pars defects. Vertebral bodies demonstrate normal signal intensity on all sequences. Ther e are no compression fractures. The conus medullaris terminates at the level of L1. The distal spina l cord signal intensity is normal. There is moderate to advanced disc height loss L5-S1. Disc desicc ation at all levels of lumbar spine. Mild disc height loss at L4-L5 with annular fissure. Simple cyst identified in the inferior pole the left kidney measuring 1.9 cm. Abdominal aorta is normal in calib er. Osseous hemangioma identified involving the right iliac bone. The aorta is normal. There is an os seous hemangioma identified involving the right L1 pedicle. L1-L2: There is mild disc bulge. No significant facet arthropathy. Mild bilateral neuroforaminal sten osis, left greater than right. There is no spinal canal stenosis. L2-L3: Disc is normal in configuration. No significant facet arthropathy. There is an extradural mass centered within the left neural foramen measuring 1.2 x 1.7 x 3.1 cm (AP by transverse by craniocaud al). This is incompletely evaluated without intravenous contrast. There is mass effect on the left la teral recess with involvement of the left lateral epidural space. The mass extends from the mid L2 ve rtebral level to the mid L3 vertebral level. Differential consideration would include sequestered dis c versus peripheral nerve sheath tumor. L3-L4: Disc is normal in configuration. No significant facet arthropathy. No neuroforaminal or spinal canal stenosis. L4-L5: L4-L5: Mild disc bulge. Moderate facet arthropathy. Mild to moderate bilateral neuroforaminal stenosis, right greater than left. No significant spinal canal stenosis. L5-S1: There is uncovering of the disc secondary to anterolisthesis. Severe facet arthropathy. Mild n euroforaminal stenosis. No spinal canal stenosis. IMPRESSION: Mild to moderate degenerative changes of the lumbar spine as described in detail above. There is an extradural mass centered at the left L2-L3 neural foramen extending craniocaudally from t he mid L2 level to the mid L3 level. The mass measures 1.2 x 1.7 x 3.1 cm and is incompletely evaluat ed without intravenous contrast. Differential considerations would include sequestered disc versus pe ripheral nerve sheath tumor. There is associated mass effect on left lateral recess. Electronically signed by: Luz Elena Arellano MD (08/31/2021 2:33 PM) [id number]
== END ==
LOC: KCIC MRI 10:04
PROVIDERS: ATTEND Physician Assistant Medical
DX: M47.26 Other spondylosis with radiculopathy, lumbar region (principal); M48.8X7 Other specified spondylopathies, lumbosacral region; M48.07 Spinal stenosis, lumbosacral region; G95.89 Other specified diseases of spinal cord; M51.26 Other intervertebral disc displacement, lumbar region; M43.17 Spondylolisthesis, lumbosacral region; D18.09 Hemangioma of other sites; M51.37 Other intervertebral disc degeneration, lumbosacral region; M62.81 Muscle weakness (generalized); M25.552 Pain in left hip
CPT/HCPCS: 72148

== ENCOUNTER → 2021-09-27 | Outpatient (CLI) | payer OTHER ==
[~2021-09-27] MED LIST: GABA600T7 PO; GADOTERATE 7.5 MMOL/15ML VIAL. IVP ONE; HYDR-3068 PO
--- NOTE | 2021-09-27 14:08 | KCIC ---
EXAMINATION: Magnetic resonance imaging (MRI) of the lumbar spine with and without contrast 09/27/2021 10:48 AM HISTORY: Low back pain. TECHNIQUE: Multiplanar multi-weighted MRI of the lumbar spine was performed without the intravenous c ontrast using the standard lumbar spine protocol. Contrast information: Gadolinium based contrast. COMPARISON: MRI lumbar spine 08/31/2021 FINDINGS: There is 2 mm retrolisthesis of L1 on L2. There is a millimeter anterolisthesis of L5 on S1. Vertebra l bodies demonstrate normal signal intensity on all sequences. There are no compression fractures. The conus medullaris terminates at the level of L1. The distal spinal cord signal intensity is normal . There is advanced disc height loss at L5-S1. There is a left renal cyst measuring 1.6 cm. Abdomina l aorta is normal in caliber. Presents portions of the sacrum appear intact. Areas of fatty marrow no aranza within the sacrum. There is an extra medullary, extradural enhancing lesion at the L2-L3 vertebra l level which extends into the left neural foramen and measures approximately 6 x 14 x 14 mm. T12-L1: The disc is normal in configuration. There is no facet arthropathy. There is no neuroforamina l stenosis. There is no spinal canal stenosis. L1-L2: Mild disc bulge. No significant facet arthropathy. Mild neuroforaminal stenosis. No spinal can al stenosis. L2-L3: Disc is normal in configuration. No significant facet arthropathy. Moderate left neuroforamina l stenosis secondary to extra medullary mass. L3-L4: Disc is normal in configuration. No significant facet arthropathy. No neuroforaminal or spinal canal stenosis. L4-L5: There is a circumferential disc bulge with central disc protrusion. Moderate facet arthropathy . Moderate bilateral neural foraminal stenosis, right greater than left. No significant spinal canal stenosis. L5-S1: There is uncovering of the disc secondary to anterolisthesis. Moderate right and mild left yasmin roforaminal stenosis. No spinal canal stenosis. Chronic bilateral L5 pars defects. 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 Dif ferential constrictions would include a peripheral nerve sheath tumor versus sequestered disc. Mild to moderate degenerative changes of the lumbar spine as described in detail above. Electronically signed by: Luz Elena Arellano MD (09/27/2021 2:05 PM) [id number]
== END ==
LOC: KCIC MRI 10:35
PROVIDERS: ATTEND Neurological Surgery
DX: D49.2 Neoplasm of unspecified behavior of bone, soft tissue, and skin (principal); M47.26 Other spondylosis with radiculopathy, lumbar region; M51.26 Other intervertebral disc displacement, lumbar region; M48.07 Spinal stenosis, lumbosacral region; M43.8X7 Other specified deforming dorsopathies, lumbosacral region; M43.16 Spondylolisthesis, lumbar region; M48.8X6 Other specified spondylopathies, lumbar region
CPT/HCPCS: 72158; A9575

== ENCOUNTER → 2021-10-18 | Outpatient (CLI) | payer OTHER ==
[~2021-10-18] MED LIST changes: +ACET325T21 PO; -GADOTERATE 7.5 MMOL/15ML VIAL. IVP ONE; +HYDR-2761 PO; +IBUP-1060 PO
[2021-10-18 10:22] LABS: BASO # 0.1 x10^3/uL (0.0-0.2); BASO % 1 % (0-3); EOS # 0.3 x10^3/uL (0.0-0.7); EOS % 4 % (0-3); HEMATOCRIT 41.2 % (36.0-47.0); HEMOGLOBIN 13.6 g/dL (12.0-15.5); LYMPH # 3.3 x10^3/uL (1.0-4.8); LYMPH % 42 % (24-48); MEAN CORPUSCULAR HEMOGLOBIN 31 pg (25-35); MEAN CORPUSCULAR HGB CONC 33 g/dL (31-37); MEAN CORPUSCULAR VOLUME 94 fL (79-100); MONO # 0.6 x10^3/uL (0.0-1.1); MONO % 8 % (0-9); NEUT # 3.5 x10^3/uL (1.8-7.7); NEUT % 45 % (31-73); PLATELET COUNT 312 x10^3/uL (140-400); RED BLOOD COUNT 4.38 x10^6/uL (3.50-5.40); RED CELL DISTRIBUTION WIDTH 14.6 % (11.5-14.5); WHITE BLOOD COUNT 7.8 x10^3/uL (4.0-11.0)
[2021-10-18 10:41] LABS: ALBUMIN 3.6 g/dL (3.4-5.0); ALBUMIN/GLOBULIN RATIO 1.1 (1.0-1.7); CALCIUM 8.9 mg/dL (8.5-10.1); CREATININE 0.8 mg/dL (0.6-1.0); GFR 73.2; POTASSIUM 4.2 mmol/L (3.5-5.1); TOTAL BILIRUBIN 0.5 mg/dL (0.2-1.0)
== END ==
LOC: SURGPAT 11:00
PROVIDERS: ATTEND Neurological Surgery
DX: Z01.812 Encounter for preprocedural laboratory examination (principal); M51.16 Intervertebral disc disorders with radiculopathy, lumbar region
CPT/HCPCS: 36415; 80053; 85025; 87641

== ENCOUNTER 2021-10-20 10:38 | Observation (INO) | payer OTHER ==
[2021-10-18 15:27] VITALS: BP 154/70
--- NOTE | 2021-10-19 11:35 | PREOP HP ---
DATE OF SERVICE: 10/20/2021 HISTORY OF PRESENT ILLNESS: The patient is a pleasant 60-year-old who on 08/11/2021 spontaneously developed extremely severe left-sided lower back pain along with pain in her left hip, left thigh and anterior thigh and anterior leg. She says she has numbness in the anterior leg, which has persisted from that time to the present. Her left leg feels weak and can give out. She has fallen. There were no problems on the right side. She rates her pain 5/10 with pain medication. Activity increases her pain. Lying down and heating pad can help. She takes hydrocodone and gabapentin. She has been off work due to this problem. She tried chiropractic treatment, which made her worse. CURRENT MEDICATIONS: Ibuprofen, gabapentin and hydrocodone. PAST MEDICAL HISTORY: Arthritis, headaches. PAST SURGICAL HISTORY: Cholecystectomy, left knee surgery, amputation of right index finger. FAMILY HISTORY: Cancer, diabetes. SOCIAL HISTORY: Employed at [employer]. . Does not smoke. Drinks alcohol 1-2 times per year. ALLERGIES: No known drug allergies. REVIEW OF SYSTEMS: A 12-point review of systems was performed and is noncontributory except that mentioned above. PHYSICAL EXAMINATION: GENERAL: Alert, pleasant, in no acute distress. HEENT: Head is normocephalic, atraumatic. SKIN: Warm and dry. MUSCULOSKELETAL: Lumbar paraspinal muscle bulk is normal, restricted range of motion of the lumbar spine, [id number] tenderness of the lower lumbar spine with palpation, normal range of motion of the lower extremities bilaterally. EXTREMITIES: No clubbing, cyanosis or edema. NEUROLOGIC: Alert and oriented x 3. Strength is 5/5 in the lower extremities bilaterally except for left hip flexor, which was 2/5 and left quadriceps was 4-/5, sensory is intact to light touch in the lower extremities except for decreased light touch in the anterior thigh, stopping just below the left knee. Reflexes were present and symmetric in the lower extremities bilaterally, negative straight leg raising, slow antalgic gait favoring her left leg. IMAGING: I reviewed a contrast and noncontrast MRI scan. At L2-L3, there is a large extradural mass on the left side of the canal, which measures 3.1 x 1.7 x 1.2 cm. There is mass effect on the left side of the canal and the nerve roots on the left. Some of the mass does extend into the foramen on the left side. It extends basically from the mid L2 level to the mid L3 level. ASSESSMENT AND PLAN: This is an unusual appearing mass; however, I believe this is a herniated disk, more likely than a nerve sheath tumor. I have recommended a microdiskectomy at L2-L3 on the left. We spoke about the technique, the risk and the expected postoperative course. She would like to go ahead. We are going to make the arrangements. BEKA DR: Addy TID: [id number]
[~2021-10-20] VITALS: Ht 165.1 cm; Wt 72.7 kg
[~2021-10-20 10:38] MED LIST changes: +BUPIVACAINE-EPI 0.5% 30 ML VIAL KIT. ONE; +DEXAMETHASONE SOD PHOS 4 MG/ML VIAL ONE; +GELATIN SPONGE SIZE 100. ONE; +GLYCOPYRROLATE 1 MG/5 ML VIAL. ONE; +HYDROmorphone 2 MG/ML INJ. IVP PRN; +IV RINGERS,LACTATED 1000ML 1,000 ML IV SCH; +KETOROLAC 60 MG/2 ML VIAL. ONE; +LIDOCAINE 2% PF 5 ML VIAL. ONE; +MORPHINE SULFATE 2 MG/ML INJ. IVP PRN; +ONDANSETRON PF 4 MG/2 ML VIAL. ONE; +PHENYLEPHRINE in 0.9% NACL PF 1 MG/10 ML SYRINGE. IV ONE; +PROCHLORPERAZINE 10 MG/2 ML VIAL. IVP PRN; +PROPOFOL 10 MG/ML (20ML) VIAL. IV ONE; +PROPOFOL 50 ML IV ONE; +REMIFENTANIL 2 MG VIAL. IV ONE; +ROCURONIUM 50 MG/5 ML VIAL. ONE; +THROMBIN TOPICAL 20,000 UNIT SPRAY.SYRN KIT TP ONE; +ceFAZolin SODIUM 1 GM in IV NORMAL SALINE 1000ML BAG 1,000 ML IRR ONE; +ePHEDrine PF IN SALINE 50 MG/10 ML SYRINGE. IV ONE; +fentaNYL PF VIAL 100 MCG/2 ML VIAL IVP PRN; +fentaNYL PF VIAL 100 MCG/2 ML VIAL ONE
[2021-10-20] MEDS ORDERED: DESFLURANE > 120 MINUTES IH ONE (10:45)
[2021-10-20 11:07] VITALS: BP 196/95
[2021-10-20] MEDS ORDERED: PROPOFOL 50 ML IV ONE (11:33)
[2021-10-20] MEDS ORDERED: NEOSTIGMINE METHYLSULFATE 5 MG/5 ML SYRINGE. ONE (12:29)
[2021-10-20] MEDS ORDERED: ACETAMINOPHEN 325 MG TABLET. PO PRN (15:15)
[2021-10-20] MEDS ORDERED: CALCIUM CARBONATE 500 MG TAB.CHEW PO PRN (15:15)
[2021-10-20] MEDS ORDERED: MAGNESIUM HYDROXIDE 2,400 MG/30 ML ORAL.SUSP. PO PRN (15:15)
[2021-10-20] MEDS ORDERED: fentaNYL PF VIAL 100 MCG/2 ML VIAL IVP PRN (15:15)
[2021-10-20] MEDS ORDERED: NALOXONE 0.4 MG/ML VIAL. IV PRN (15:15)
[2021-10-20] MEDS ORDERED: HYDROcodone/APAP 5/325MG 1 TAB TABLET PO PRN (15:15)
[2021-10-20] MEDS ORDERED: MAG HYDROX/ALUMINUM HYD/SIMETH 30 ML ORAL.SUSP PO PRN (15:15)
[2021-10-20] MEDS ORDERED: 0.9 % SODIUM CHLORIDE 10 ML DISP.SYRIN. IV PRN (15:15)
[2021-10-20] MEDS ORDERED: diphenhydrAMINE HCL 25 MG CAPSULE PO PRN (15:15)
[2021-10-20] MEDS ORDERED: METHOCARBAMOL 750 MG TABLET PO PRN (15:15)
[2021-10-20] MEDS: POTASSIUM CL 20MEQ D5-0.45NACL 1,000 ML IV SCH (16:03)
--- NOTE | 2021-10-20 16:05 | OP ---
DATE OF SURGERY: 10/20/2021 PREOPERATIVE DIAGNOSIS: Large herniated lumbar disc with left extradural component as well as a foraminal component compressing the left L2 and L3 nerve roots at L2-L3, left. POSTOPERATIVE DIAGNOSIS: Large herniated lumbar disc with left extradural component as well as a foraminal component compressing the left L2 and L3 nerve roots at L2-L3, left. OPERATIONS PERFORMED: Hemilaminotomy followed by a transfacet exposure with microdiscectomy, removing epidural disc from lateral to the nerve root, inferior to the nerve root at L2-L3 along with disc, which followed the L2 root out through the foramen. The operation was done with EMG monitoring, fluoroscopy, microscopic dissection, SSEP monitoring. SURGEON: Roni Rowe M.D. HOME DECORATOR: CHAVEZ Viera, assisted with the surgery. She assisted with the microdecompression and discectomy as well as the closure. OPERATIVE INDICATIONS: The patient is a pleasant 60-year-old woman who developed intractable back and left leg pain, which failed conservative measures. On imaging studies, there was a question of whether this was a nerve sheath tumor versus a very large herniated disc. We studied her and the studies were inconclusive. I recommended surgery to decompress the root as well as make a diagnosis and she understood the rationale for surgery and wished to go ahead. DESCRIPTION OF PROCEDURE: Following general endotracheal anesthesia, the patient was positioned prone on Tristan table. Lumbar region prepped and draped in standard fashion. RAFAEL hose and AV impulse boots were applied for DVT prophylaxis. A microscope was draped, fluoroscopy was draped and brought into the field. Monitoring was established. Ancef 2 grams was given less than 1 hour prior to the initiation of surgery. Using fluoroscopic guidance, a midline posterior incision was made. I dissected down through skin and subcutaneous tissue, reflected the paraspinal muscles and placed a [place] microdisk retractor. I brought in the microscope and using a high-speed air drill, I burred down a generous hemilaminotomy and then worked superiorly and inferiorly, performed a generous partial foraminotomy. I pulled thickened ligamentum flavum away. There was a disc lateral to the dura and I removed this and as I followed inferiorly, there was a large fragment of disc, which was subligamentous at this point and markedly compressing the root as it entered the foramen. I gently worked through this region. I carefully identified the root. I then removed this disc. There was also disc that worked out laterally into the foramen and I shaved and followed the foramen out laterally and then followed the L2 root out, retracted it and safety removed multiple disc fragments from this location, which were densely scarred. As I worked, the area became very well decompressed. I explored carefully. There were no retained fragments. I could follow both the L2 root and L3 root out and beneath the dura. There was no evidence of further disc material. I did enter the disc space and performed discectomy as well. I felt that the region was very clear. Hemostasis was excellent. I did use a bipolar cautery where necessary, had small amounts of bone wax. I then irrigated copiously, removed the retractors, irrigated again, obtained hemostasis in the muscle and I closed the wound in layers with absorbable suture. The skin was closed with 4-0 subcuticular stitch. I felt surgery went very well. ROBY/KRAIG DR: Paresh TID: [id number] KULWANT
[2021-10-20] MEDS: HYDROcodone/APAP 5/325MG 1 TAB TABLET PO PRN (16:18)
[2021-10-20 19:00] VITALS: BP 127/62
--- NOTE | 2021-10-20 19:00 | NUR ---
Admit s/p LMD L2-L3, pt A& O x3, sitting in recliner. States she had a dinner tray in PACU. Dressing is C/D/I. Ice pack placed, IVF running, call light in reach. Denies pain, weakness or numbness/tingling.
[2021-10-20 20:18] VITALS: BP 139/64
[2021-10-20] MEDS ORDERED: GABAPENTIN 300 MG CAPSULE. PO SCH (21:00)
[2021-10-20 23:42] VITALS: BP 108/58
[2021-10-21] MEDS: HYDROcodone/APAP 5/325MG 1 TAB TABLET PO PRN (02:31)
[2021-10-21] MEDS: DOCUSATE SODIUM 100 MG CAPSULE. PO SCH ×2 (02:31→08:29)
[2021-10-21 03:28] VITALS: BP 124/54
[2021-10-21] MEDS: POTASSIUM CL 20MEQ D5-0.45NACL 1,000 ML IV SCH (04:35)
--- NOTE | 2021-10-21 05:37 | NUR ---
Slept well all noc. Anticipates discharge today.
[2021-10-21 07:00] VITALS: BP 118/70
[2021-10-21] MEDS ORDERED: METH-562 PO (09:43)
[2021-10-21] MEDS ORDERED: DOCU-109 PO (09:43)
--- NOTE | 2021-10-21 09:44 | DISCH ---
DISCHARGE INSTRUCTIONS Condition on Discharge Condition on Discharge: Stable Activity After Discharge Activity Instructions for Disc: Activity as tolerated, Avoid exertion Other activity instructions: no driving for a week Bathing Instructions: Shower-keep dressing dry, No Tub Bath until see Lifting Instructions after Dis: No heavy lifting, No pulling or pushing, Do not lift >10 pounds Driving Instructions after Dis: No driving for 2 weeks Weight Bearing Status after Di: No restrictions Diet after Discharge Diet after Discharge: Low Fat, Regular Additional Diet Restrictions: resume home diet Diet Texture: Regular Liquid Texture: Thin Liquid Swallowing Supervision: None needed Wound Incision Care Wound/Incision Care: Ice to area for comfort, Change dressing, Reinforce dressing PRN Other wound/incision instructi: ok to remove dressing in 48 hours if dry, no soaking Wound Care Equipment: Dressings Contacting the DRJudi after DC Call your doctor for: Concerns you may have Follow-Up Follow up with: Dr. Miller's nurse in 2 weeks [phone] WILLIS MILLER MD Oct 21, 2021 09:44
--- NOTE | 2021-10-25 17:08 | PATHOLOGY ---
[facility] Accession Number: [id number] . 01 Material submitted: . PART A: vertebral column - LUMBAR DISC PART B: vertebral column - LUMBAR DECOMPRESSION . 01 Clinical history: . LUMBAR HERNIATED DISC WITH RADICULOPATHY LUMBAR MICRODISCECTOMY L2-3 . 02 Diagnosis: A. Segments of fibrocartilaginous, adipose and skeletal muscle tissue and minute segments of bone, lumbar disc - Degenerative changes of fibrocartilaginous tissue. . B. Segments of fibrocartilaginous, adipose, skeletal muscle, and synovial tissue and bone, lumbar decompression: - Degenerative changes of fibrocartilaginous tissue. . (JPM:nena; 10/25/2021) [facility] 10/25/2021 1535 Local . 02 Comment: There is no evidence of an acute inflammatory process or malignancy. (TJM:nena; 10/25/2021) . 02 Electronically signed: . Leonardo Carmona MD, Pathologist NPI- [id number] . 01 Gross description: . A. The specimen is received in formalin, labeled "Knobel, Maryse, lumbar disc". Received are multiple segments of pale vargas to pink-vargas fibrous tissue admixed with fragments of gritty bone measuring 2.2 x 1.3 x 0.1 cm in aggregate dimensions. The specimen is submitted insurance healthcare representative in cassette A1, following light decalcification. . B. The specimen is received in formalin, labeled "Knobel, Maryse, lumbar decompression". Received are multiple segments of pale vargas to pink-vargas fibrous tissue admixed with fragments of gritty bone measuring 3.2 x 3.0 x 0.5 cm in aggregate dimensions. The specimen is submitted insurance healthcare representative in cassette A1, following light decalcification. ([facility]; 10/22/2021) [facility] 10/22/2021 1036 Local . 02 Pathologist provided ICD-10: M51.26 . 02 CPT . 233685, 247316, 544623, [id number] Specimen Comment: A courtesy copy of this report has been sent to [phone] Specimen Comment: [id number] Specimen Comment: Report sent to / DR COHEN Specimen Comment: A duplicate report has been generated due to demographic updates. Performed at: 01 [facility] [address] [id number] MD Connor Spivey MD Phone: [phone] Performed at: 02 [facility] [address] [place], [place] [id number] MD Leonardo Carmona MD Phone: [phone]
== END 2021-10-21 11:56 | disposition home or self-care (01) ==
LOC: SURG 10:38 → 4 NORTH 15:07
PROVIDERS: ADMIT Neurological Surgery; ATTEND Neurological Surgery
DX: M51.16 Intervertebral disc disorders with radiculopathy, lumbar region (principal); M19.90 Unspecified osteoarthritis, unspecified site; R51.9 Headache, unspecified; M51.26 Other intervertebral disc displacement, lumbar region; Z90.49 Acquired absence of other specified parts of digestive tract; Z79.899 Other long term (current) drug therapy; Z98.890 Other specified postprocedural states
CPT/HCPCS: 63030; 63035; 97116; 97162; 97530; A4364; A4930; A6254; A6258; G0378; G0379; J0690; J1100; J1885; J2405; J2704; J2710; J3010; J3490; J7030; 76000; J2370